=== PATIENT | female | born 2000 | race African-American/Black ===

== ENCOUNTER 2021-01-06 10:47 | Emergency (ER) | payer MEDICAID, SELFPAY ==
--- NOTE | 2021-01-06 11:31 | ED_ITS ---
HPI - General Adult General Chief complaint: Upper Respiratory Symptoms Stated complaint: cough Time Seen by Provider: 01/06/21 11:12 Source: patient Mode of arrival: ambulatory Limitations: no limitations History of Present Illness HPI narrative: 20-year-old female who presents emergency department for evaluation of exposure to COVID-19 and a cough. The patient states she has been sick for approximately 3 days with a dry, nonproductive cough. She states that she has had a decreased appetite and a sore throat which is mild and worse with swallowing. She states she is also feeling lightheaded and dizzy. She states she gets occasional chest pain with coughing but denies any chest pain with breathing. She denies shortness of breath or dyspnea on exertion. She denies myalgias, arthralgias, loss of sense of taste or smell, diarrhea. The patient states that she lives with a 25-year-old woman who tested positive for COVID, this person was symptomatic for approximately 3 days with fever and cough. Related Data Allergies Allergy/AdvReac Type Severity Reaction Status Date / Time No Known Allergies Allergy Verified 01/06/21 11:43 Review of Systems Review of Systems: Yes all other systems are reviewed and are negative [facility] Past Medical History [facility] Narrative: Past medical history: None. Past surgical history: None. Social history: She denies tobacco, alcohol and drug use. She has 2 children a 3-year-old and 2-year-old . Her 2-year-old sign is also patient here in the emergency department for evaluation of subjective fever. Medical History (Updated 01/06/21 @ 11:41 by Ambreen Horan) No known health problems Social History Social History Advance Directives: No Advance Directives Information Provided: No Patient : No Physical Exam Vital Signs: Vital Signs: Last Vital Signs Temp 97.6 F 01/06/21 11:40 Pulse 71 01/06/21 11:40 Resp 16 01/06/21 11:40 BP 96/60 01/06/21 11:40 Pulse Ox 98 01/06/21 11:40 Body Mass Index 21.9 Const: General: cooperative and no acute distress Orientation/consciousness: oriented to person and oriented to place Limitations: no limitations HENMT: Head: Yes normal to inspection, Yes normocephalic and Yes atraumatic Ears: external ears normal General nose exam: Normal external nose present Face and sinus: Yes normal facial exam Mouth: Normal oral and palatal mucosa present Throat: Yes posterior oropharynx normal Eyes: General: appearance normal, both eyes and all related structures Pupils: Equal, round and reactive pupils present Neck: Neck: Yes normal visual inspection, Yes no lymphadenopathy, Yes trachea midline and Yes supple Chest: Chest palpation & inspection: normal inspection of the chest and normal palpation of entire chest wall Resp: Effort & Inspection: normal respiratory effort and able to speak in complete sentences Auscultation: clear to auscultation bilaterally Cardio: Rate: regular rate Rhythm: regular rhythm Heart sounds: S1 normal heart sound present, S2 normal heart sound present and no murmurs GI: Inspection: Yes normal to inspection Palpation (GI): Soft to palpation, nontender and no guarding Auscultation: normal bowel sounds : General: Yes no CVA tenderness Back/Spine/Pelvis: Back: no CVA tenderness Skin: General skin exam: no rashes or lesions noted Neuro: General: oriented to person and oriented to place Cranial nerves: Yes CN's II-XII intact bilaterally and Yes Equal, round and reactive pupils present Cognition (Neuro): normal cognition Motor exam (neuro): 5/5 motor strength present throughout Extrem: General: Yes normal to inspection Psych: Appearance: grossly normal Speech and movement: Normal speech and movement present Affect: normal affect Attitude: cooperative Thought process: Normal thought process present Thought content: Normal thought content present Course Course Course Narrative: 20-year-old female who presents emergency department for evaluation of 3 days dry, nonproductive cough, dizziness, decreased appetite and sore throat. The patient lives with a woman who has been sick for approximately 3 days with fever and cough who tested positive for COVID-19. This patient has not been vaccinated for COVID-19. Her physical examination was unremarkable. The patient will be tested for COVID-19. The patient was discharged home, I told her that even if her COVID-19 test is negative she needs to quarantine for 14 days. I told her that she should stay at home and not expose herself to any other people, I did instructor on signs and symptoms of COVID pneumonia and reasons to return to the emergency department. At this time she does not need any treatment. I will discharge the patient from the emergency department and contact her with her COVID-19 result. 1248: Patient's COVID-19 test was positive. I did inform her of this positive result. Medical Decision Making Lab Data Labs: Lab Results 01/06/21 Range/Units 11:50 COVID-19 ([facility]) Positive A (Negative) COVID-19 Clin Com See Note Discharge Plan Discharge Clinical Impression: Close exposure to 2019 novel coronavirus URI (upper respiratory infection) Qualifiers: URI type: unspecified viral URI Qualified Code(s): J06.9 - Acute upper respiratory infection, unspecified Patient Disposition: Home, Self-Care Instructions: Viral Syndrome (ED) Additional Instructions: Based on your symptoms and history, you were tested forCOVID-19. Your RESULT IS PENDING at this time. Your result should be back to day and I will call you with the results. You will be contacted with either a NEGATIVE OR POSITIVE results. Please wait until we contact you for your results. Based on your evaluation today, it is okay to send you home. Please plan for self quarantine for up to 14 days. Do not expose yourself to others. You may not go to work. Please continue to wear a mask, follow cold instructions and wash your hands frequently. You may take Tylenol 325 mg pills, 2 pills every 4 hours as needed for pain or fever. You may also take ibuprofen(Motrin/Advil) 200 mg pills, 3 pills every 6 hours as needed for pain or fever. Patient seen in the emergency department should be excused from work until negative test results AND until 72 hours without any symptoms have gone away completely OR at least 10 days have passed since symptoms first appeared or since last exposure to COVID-19 positive patient CDC Guidelines for home isolation: - Stay away from others - WEAR A MASK if you are sick AND STAY HOME - Cover your mouth and nose with a tissue when you cough or sneeze. Dispose of tissues in a lined trash can and wash your hands immediately with soap and water for at least 20 seconds. If soap and water are not available, clean hands with alcohol-based hand internet specialist that contains at least 60% alcohol. - Clean your hands often with soap and water for at least 20 seconds - Avoid touching your eyes, nose and mouth with unwashed hands - Do not share dishes, drinking glasses, cups, eating utensils, towels, or bedding with other people in your home. After using these items, wash them thoroughly with soap and water or put in the road conductor. - Clean high-touch surfaces in your isolation area ( sick room and bathroom) every day; let a caregiver clean and disinfect high-touch surfaces in other areas of the home. Clean the area or item with soap and water or another detergent if it is dirty. Then, use a household disinfectant. - Limit contact with pets and animals: If you must care for a pet, wash your hands before and after interacting with them). Interventions: ED Discharge Assessment Last Done: 01/06/21 12:10 Discharge Date/Time: 01/06/21 12:14
[2021-01-06 11:40] VITALS: BP 96/60; PULSE 71; RESP 16; TEMP 36.4; O2SAT 98; BMI 21.9
--- NOTE | 2021-01-06 12:07 | PC.NURSE ---
PT SEEN AND EVALUATED BY DR DUVAL. PT AWAKE, ALERT AND ORIENTED X 3. SKIN WARM AND DRY. RESP UNLABORED. DENIES N/V. NO C/O PAIN. NO SOB. NO COUGH NOTED. PLAN IS FOR SWAB AND TO GO HOME. PT AWARE AND AGREEABLE TO PLAN.
--- NOTE | 2021-01-06 12:10 | PC.NURSE ---
PREVIOUS NOTE WRITTEN BY THIS RN.
[2021-01-06 12:16] LABS: COVID-19 Test Positive (Negative); IDNOW Serial# 08D9AD1C
== END 2021-01-06 12:14 | disposition home or self-care (01) ==
PROVIDERS: Emergency Provider Emergency Medicine Emergency Medical Services
DX: U07.1 COVID-19 (principal)
CPT/HCPCS: 36415; 87635; 99283

== ENCOUNTER 2021-01-18 15:45 | Outpatient (REF) | payer MEDICAID, SELFPAY | END 2021-01-18 15:46 | disposition home or self-care (01) | LOC: HO.LAB 15:45 | PROVIDERS: Visit Provider Internal Medicine | DX: Z20.822 Contact with and (suspected) exposure to COVID-19 (principal) | CPT/HCPCS: C9803; U0003; U0005 ==

== ENCOUNTER 2021-03-29 12:56 | Emergency (ER) | payer MEDICAID, SELFPAY ==
[2021-03-29 15:16] VITALS: BP 116/67; PULSE 76; RESP 16; TEMP 36.6; O2SAT 99; BMI 20.7
[2021-03-29 16:09] LABS: MANUAL DIFF FLAG NO
[2021-03-29 16:10] LABS: Basophils Percent Auto 0.2 % (0-2); Eosinophils Percent Auto 0.1 % (0-4); Hematocrit 33.4 % (37.0-47.0); Imm Gran Abs Auto 0.06 X10*3/uL (0.00-0.03); Imm Gran Pct Auto 0.5 % (0.0-0.4); Lymphocytes Absolute Auto 1.1 X10*3/uL (1.2-4.9); Lymphocytes Percent Auto 8.4 % (20-40); Mean Corpuscular HGB Conc 29.9 g/dl (31.0-35.0); Mean Corpuscular Hemoglobin 22.5 pg (27.0-33.0); Mean Corpuscular Volume 75.1 fL (80.0-98.0); Mean Platelet Volume 9.5 fL (9.4-12.3); Monocytes Absolute Auto 0.4 X10*3/uL (0.1-1.2); Monocytes Percent Auto 2.8 % (2-11); Neutrophils Absolute Auto 11.6 x10*3/uL (2.0-8.3); Platelet Count 505 X10*3/uL (160-400); Red Blood Count 4.45 X10*6/uL (4.20-5.50); Red Cell Distribution Width 15.5 % (11.0-16.0); White Blood Count 13.2 X10*3/uL (4.8-10.8)
--- NOTE | 2021-03-29 16:16 | ED_ITS ---
HPI - General Chief complaint: Vaginal Bleeding Stated complaint: VAGINAL BLEEDING FOR MONTH Time Seen by Provider: 03/29/21 16:11 History of Present Illness HPI Narrative: this is a 20 years old of female presented to the emergency room with 1 month history of vaginal bleeding, she denies any fever any vomiting any abdominal pain. She is a . Complaint: vaginal bleeding Onset (ago): month(s) (1) Pain Consistency: intermittent Severity: mild Quality: Cramping Relieving factors: none Exacerbating factors: none Vaginal bleeding: light Related Data : 2 Para: 2 Allergies Allergy/AdvReac Type Severity Reaction Status Date / Time No Known Allergies Allergy Verified 01/06/21 11:43 Review of Systems Review of Systems: Yes all other systems are reviewed and are negative Constitutional: Constitutional: Reports no additional constitutional complaints Eyes: Eyes: Reports no additional eye complaints ENT: Reports system reviewed and no additional complaints, except as documented Cardiovascular: Cardiovascular: Denies chest pain Gastrointestinal: Gastrointestinal: Denies abdominal pain Integumentary/Breasts: Skin/Breast: Reports system reviewed and no additional complaints, except as docu Neurologic: Reports system reviewed and no additional complaints, except as documented [facility] Past Medical History Medical History (Updated 03/29/21 @ 17:01 by Christopher Sullivan MD) No known health problems : 2 Para: 2 Social History Social History Advance Directives: No Advance Directives Information Provided: No Patient : No Physical Exam Vital Signs: Vital Signs: Last Vital Signs Temp 99.7 F 03/29/21 16:17 Pulse 72 03/29/21 16:17 Resp 14 03/29/21 16:17 BP 109/70 03/29/21 16:17 Pulse Ox 100 03/29/21 16:17 Body Mass Index 20.7 Const: General: cooperative, healthy appearing and comfortable Orientation/consciousness: patient oriented x3 HENMT: Other: Examination the head eyes ears nose and throat is within normal limits General nose exam: Normal external nose present Face and sinus: Yes normal facial exam Mouth: Normal oral and palatal mucosa present Neck: Neck: Yes normal visual inspection, Yes full ROM and Yes no lymphadenopathy Chest: Chest palpation & inspection: normal inspection of the chest Resp: Effort & Inspection: normal respiratory effort Auscultation: clear to auscultation bilaterally Cardio: Jugular venous distension: no JVD Rate: regular rate Rhythm: re gular rhythm GI: Inspection: Yes normal to inspection Palpation (GI): Soft to palpation, nontender and no guarding : Other: pelvic exam was done (svetlana Crouch RN) no vaginal bleeding seen Speculum Exam - Vagina: normal appearance of the vagina Speculum Exam - Cervix: normal appearance of the cervix Bimanual exam- vagina & uterus: normal bimanual exam Skin: General skin exam: no rashes or lesions noted and elasticity normal Neuro: General: patient oriented x3 MDM - OB/Uterine Contractions Lab Data Result diagrams: 03/29/21 16:03 03/29/21 16:03 Labs: Lab Results 03/29/21 03/29/21 Range/Units 16:03 16:03 WBC 13.2 H (4.8-10.8) X10*3/uL RBC 4.45 (4.20-5.50) X10*6/uL Hgb 10.0 L (12.0-16.0) g/dl Hct 33.4 L (37.0-47.0) % MCV 75.1 L (80.0-98.0) fL MCH 22.5 L (27.0-33.0) pg MCHC 29.9 L (31.0-35.0) g/dl RDW 15.5 (11.0-16.0) % Plt Count 505 H (160-400) X10*3/uL MPV 9.5 (9.4-12.3) fL Immature Gran % (Auto) 0.5 H (0.0-0.4) % Neut % (Auto) 88.0 H (45-73) % Lymph % (Auto) 8.4 L (20-40) % Newberry % (Auto) 2.8 (2-11) % Eos % (Auto) 0.1 (0-4) % Baso % (Auto) 0.2 (0-2) % Lymph # (Auto) 1.1 L (1.2-4.9) X10*3/uL Newberry # (Auto) 0.4 (0.1-1.2) X10*3/uL Eos # (Auto) 0.0 (0.0-0.4) X10*3/uL Baso # (Auto) 0.0 (0.0-0.2) X10*3/uL Abs Immat Gran (auto) 0.06 H (0.00-0.03) X10*3/uL Absolute Neuts (auto) 11.6 H (2.0-8.3) x10*3/uL Absolute Nucleated RBC 0.000 (0.0-0.012) X10*3/uL Nucleated RBC % (auto) 0.0 (0.0-0.2) /100WBC Sodium 140 (135-145) mmol/L Potassium 4.6 (3.3-5.1) mmol/L Chloride 105 (96-108) mmol/L Carbon Dioxide 24 (22-29) mmol/L Anion Gap 16 (12-20) BUN 16 (9-16) mg/dL Creatinine 0.69 (0.5-1.4) mg/dL Estim Creat Clear Calc 110.4 Estimated GFR > 60 Random Glucose 92 (60-115) mg/dL Calcium 9.8 (8.4-10.2) mg/dL Total Bilirubin 0.3 (0.0-1.0) mg/dL AST 15 (5-31) U/L ALT 17 (0-31) U/L Alkaline Phosphatase 85 (39-117) U/L Total Protein 7.9 (6.5-8.0) g/dL Albumin 4.3 (3.5-5.0) g/dL Beta HCG, Quant < 2 mIU/mL Discharge Plan Discharge Clinical Impression: Vaginal bleeding Patient Disposition: Home, Self-Care Instructions: Dysfunctional Uterine Bleeding (ED) Referrals: Vijay Ramirez MD [Physician] - 2 days
[2021-03-29 16:17] VITALS: BP 109/70; PULSE 72; RESP 14; TEMP 37.6; O2SAT 100
[2021-03-29 16:34] LABS: Alanine Aminotransferase 17 U/L (0-31); Albumin Level 4.3 g/dL (3.5-5.0); Alkaline Phosphatase 85 U/L (39-117); Anion Gap 16 (12-20); Aspartate Amino Transferase 15 U/L (5-31); Bilirubin Total 0.3 mg/dL (0.0-1.0); Blood Urea Nitrogen 16 mg/dL (9-16); Calcium 9.8 mg/dL (8.4-10.2); Carbon Dioxide 24 mmol/L (22-29); Chloride 105 mmol/L (96-108); Creatinine Clr Calc Pharmacy 110.4; Estimated Glomerular Filt Rate > 60; Glucose Random 92 mg/dL (60-115); Potassium 4.6 mmol/L (3.3-5.1); Sodium 140 mmol/L (135-145); Total Protein 7.9 g/dL (6.5-8.0)
[2021-03-29 16:40] LABS: HCG Quantitative < 2 mIU/mL
--- NOTE | 2021-03-29 17:00 | PC.NURSE ---
PELVIC EXAM PERFORMED BY DR ARCHIBALD. HE REPORTS THAT THE OS IS CLOSED AND NO SIGNIFICANT BLOOD IS NOTED IN THE VAGINAL CANAL.
[2021-03-29 17:16] LABS: Appearance Urine HAZY; Color Urine YELLOW; Glucose Urine UA NEG (NEG); Leukocyte Esterase Urine NEG (NEG); Nitrite Urine NEG (NEG); Specific Gravity - Urine >= 1.030 (1.005-1.025); UACC Culture Trigger NO; UPreg QC Valid YES; Urine Blood 2+ (NEG); Urine Ketones 15 MG/DL (NEG); Urine Pregnancy NEGATIVE (NEGATIVE); Urine Protein 1+ MG/DL (NEG-TRACE)
[2021-03-29 17:33] LABS: Mucus Urine 3+ /LPF; Squamous Epithelial Cell Urine 1+ /LPF
[2021-03-29 17:36] LABS: Bacteria Urine TRACE /LPF
== END 2021-03-29 17:20 | disposition home or self-care (01) ==
PROVIDERS: Emergency Provider Emergency Medicine
DX: N93.9 Abnormal uterine and vaginal bleeding, unspecified (principal)
CPT/HCPCS: 36415; 80053; 81001; 81025; 84702; 85025; 99283; 99284

== ENCOUNTER 2022-02-13 14:03 | Emergency (ER) | payer MEDICAID, SELFPAY ==
[2022-02-13 14:13] VITALS: BP 104/78; PULSE 81; RESP 16; TEMP 37.2; O2SAT 100; BMI 20.3
--- NOTE | 2022-02-13 16:37 | ED_ITS ---
HPI - Wound/Laceration General Chief Complaint: Wound/Laceration Stated Complaint: R hand lac/inj Time Seen by Provider: 02/13/22 15:59 Source: patient Mode of arrival: ambulatory Limitations: no limitations History of Present Illness HPI narrative: 21-year-old female presents for laceration to the right dorsal aspect of the hand between the 2nd and 3rd fingers 1 cm below the webspace. She was cleaning, dropped the glass and a shard of broken glass landed on her hand. She does have full range of motion to the digits, and was able to control the bleeding at home. Onset (ago): hour(s) (Within the hour of arrival) Extremity Location: right: hand Place: home Patient tetanus UTD: No Context: accidental Associated symptoms: pain Treatments prior to arrival: bandage Related Data Allergies Allergy/AdvReac Type Severity Reaction Status Date / Time No Known Allergies Allergy Verified 01/06/21 11:43 Review of Systems Review of Systems: Constitutional: No Fever, No Chills ENT/Mouth: No Ear Pain, No Hoarseness, No sore throat Eyes: No Eye Pain, No Swelling, No Redness, No Foreign Body Cardiovascular: No Chest Pain, No SOB Respiratory: No Cough, No Dyspnea Gastrointestinal: No Nausea, No Vomiting, No Diarrhea, No abdominal Pain Genitourinary: No Dysuria, No Hematuria Musculoskeletal: positive right hand pain, No Myalgias, No Joint Swelling Skin: Right hand laceration, No Skin lacerations, No rash Neuro: No Weakness, No Numbness, No Paresthesias, No Loss of Consciousness, No Dizziness, No Headache Psych: No Anxiety/Panic, No Depression Heme/Lymph: no easy bruising, no Lymphadenopathy Endocrine: No Polyuria, No Polydipsia Yes all other systems are reviewed and are negative [facility] Past Medical History Attestation statement: The following information was validated with the patient. Source: old records reviewed Medical History No known health problems Social History Social History Advance Directives: No Advance Directives Information Provided: Yes Physical Exam Vital Signs: Vital Signs: Last Vital Signs Temp 98.9 F 02/13/22 14:13 Pulse 81 10/09/22 14:13 Resp 16 02/13/22 14:13 BP 104/78 02/13/22 14:13 Pulse Ox 100 02/13/22 14:13 O2 Del Method 02/13/22 14:13 BMI result Body Mass Index 20.3 Appearance: Alert. Oriented X3. No acute distress. Eyes: Pupils equal, round and reactive to light. ENT: Pharynx normal. Neck: Normal inspection. Neck supple. CVS: Normal heart rate and rhythm. Pulses normal. Respiratory: No respiratory distress. Breath sounds normal. Abdomen: Soft and nontender. Skin: 1 cm irregular puncture laceration to the dorsal aspect of the right hand just below the 1st MCP. Skin warm and dry. Normal skin color. Normal skin turgor. Extremities: No lower extremity edema. Full flexion, extension, brisk capillary refill in equal pulses to the upper extremities. No indication of tendon injury. Neuro: No motor deficit. No sensory deficit. Cranial nerves 2-12 intact. Course Course Course Narrative: 21-year-old female presents for evaluation for laceration to the dorsal aspect of the right hand just below the 1st MCP between 1st and 2nd tendon extensor digitorum. Patient has full flexion and extension of all digits of the right hand, no tendon laxity or movement disruptions. Unknown when last Tdap vaccine was updated. Plan of care is to suture. Prepped and draped in sterile fashion. Irrigated with copious amounts of sterile saline. Please refer to procedure note for full details. Patient tolerated procedure well. 17:13 x-rays negative for foreign body, does show some free air consistent with laceration and irrigation. Patient agrees to return in 7-10 days to have sutures removed. Understand signs symptoms indicating infection and when to seek medical attention. Patient verbalized understanding of and agrees plan care discharge home. MDM - Wound/Laceration Differential Diagnosis Differential diagnosis: Likely laceration Medical Records Attestation: I reviewed the patient's medical records. Imaging Data Hand laceration: Attestation: I personally reviewed and interpreted this imaging study as follows: Radiologist's impression: EXAMINATION: XR HAND, RIGHT CLINICAL INFORMATION: Laceration. Question tendon laceration or foreign body? COMPARISON: None? TECHNIQUE: PA, lateral, and oblique views of the right hand. FINDINGS: No acute fracture or dislocation. There is hyperextension at the fifth MCP joint on the lateral view. Linear soft tissue gas along the medial aspect of the index finger proximal phalanx and second webspace. No radiodense foreign body. Metallic ring projects about the third proximal phalanx. Joint spaces are maintained. XR/XR hand RT min 3V IMPRESSION: ? 1. No acute osseous injury. No radiodense foreign body. 2. Soft tissue gas about the medial aspect of the base of index finger and second webspace consistent with laceration. Procedures Laceration Laceration 1: Site: hand Side (If applicable): right Size (cm): 1 Description: stellate and irregular Depth: simple, single layer Local Anesthetic: lidocaine 2% Amount of anesthesia used (mL): 2 Pre-repair: wound explored, irrigated extensively and deep structures intact Skin layer closed with: nylon Size (cm): 5-0 Number of sutures: 5 Technique: simple, interrupted Discharge Plan Discharge Clinical Impression: Hand laceration Patient Disposition: Home, Self-Care Instructions: Care For Your Stitches (ED), Laceration (ED) Additional Instructions: You were evaluated for hand laceration. We placed 5 sutures. Please return in 7-10 days to have sutures removed. If you notice any signs or symptoms indicating infection please return sooner. We updated your Tdap vaccine today. Take Tylenol 650 mg every 6 hours and alternate with Motrin 600 mg every 6 hours as needed for pain management. Write down what time you take these medications to prevent accidental overdose. Rest and elevate the hand to help reduce pain and swelling. Thank you for choosing this emergency department for evaluation. Please follow-up with primary care physician as needed. Return to the emergency department for any new, concerning, or worsening symptoms. Stand Alone Forms: Work/School Release
== END 2022-02-13 17:37 | disposition home or self-care (01) ==
PROVIDERS: Emergency Provider Emergency Medicine Emergency Medical Services
DX: S61.411A Laceration without foreign body of right hand, initial encounter (principal); W25.XXXA Contact with sharp glass, initial encounter; Y93.9 Activity, unspecified; Y92.9 Unspecified place or not applicable; Y99.9 Unspecified external cause status
CPT/HCPCS: 12001; 73130; 99283

== ENCOUNTER 2022-06-09 10:57 | Outpatient (REF) | payer MEDICAID, SELFPAY ==
--- NOTE | ~2022-06-09 | US_ITS ---
EXAMINATION: US PELVIS CLINICAL INFORMATION: Pelvic pain; the last menstrual period was on 05/08/2022. COMPARISON: None TECHNIQUE: Ultrasound of the pelvis is performed using both transabdominal and transvaginal transducers along with Doppler. Transvaginal imaging is performed due to inadequate visualization transabdominally. FINDINGS: Uterus: The uterus is anteverted and retroflexed. The uterus measures 9.8 x 4.8 x 4.8 cm. Nabothian cysts are seen within the cervix. The double wall endometrial thickness is 1.4 mm. There is a small amount nonspecific endometrial free fluid. The uterus is smooth in contour and has normal myometrial echogenicity. No visible fibroid. Adnexa: Both ovaries are visualized. There is normal color flow to the adnexa. There is no ovarian torsion. There is a small amount of nonspecific free fluid within the cul-de-sac. Right ovary measures 6.0 x 3.8 x 3.7 cm, volume 43.9 mL. The right ovary contains a 3.8 x 2.6 x 3.0 cm complex cyst with internal reticulated contents. This shows associated peripheral color Doppler flow but no central color Doppler flow. Left ovary measures 3.9 x 1.7 x 2.5 cm, volume 8.7 mL. US/US pelvic and transvaginal IMPRESSION: 1. A 3.8 cm in maximal diameter complex right ovarian cyst is seen, with ultrasound features characteristic for a hemorrhagic cyst. Further differential considerations include endometrioma and dermoid. Recommend repeat pelvic ultrasound examination 6/12 weeks to ensure regression/resolution and exclude the less likely possibility of neoplasm. 2. There is a small amount of nonspecific free fluid within the endocervical canal. 3. Nabothian cysts are seen within the cervix.
== END 2022-06-09 10:58 | disposition home or self-care (01) ==
LOC: HO.US 10:57
PROVIDERS: PCP Family Medicine; Visit Provider Family Medicine
DX: R10.2 Pelvic and perineal pain (principal)
CPT/HCPCS: 76830; 76856

== ENCOUNTER 2022-12-13 20:05 | Outpatient (REF) | payer MEDICAID, SELFPAY ==
[2022-12-14 12:49] LABS: BV Int Neg Control Negative (Negative); BV Int Pos Control Positive (Positive)
== END 2022-12-13 20:06 | disposition home or self-care (01) ==
LOC: HO.HHCLNP 20:05
PROVIDERS: Visit Provider Internal Medicine
DX: R10.2 Pelvic and perineal pain (principal)
CPT/HCPCS: 87480; 87510; 87660

== ENCOUNTER 2023-02-09 18:55 | Outpatient (REF) | payer MEDICAID, SELFPAY | END 2023-02-09 18:56 | disposition home or self-care (01) | LOC: HO.HHCLNP 18:55 | PROVIDERS: Visit Provider Student in an Organized Health Care Education/Training Program | DX: N89.8 Other specified noninflammatory disorders of vagina (principal) | CPT/HCPCS: 0353U; 87480; 87510; 87660 ==

== ENCOUNTER 2023-02-10 13:18 | Outpatient (REF) | payer MEDICAID, SELFPAY | END 2023-02-10 13:19 | disposition home or self-care (01) | LOC: HO.HHCL 13:18 | PROVIDERS: Visit Provider Student in an Organized Health Care Education/Training Program | DX: D50.9 Iron deficiency anemia, unspecified (principal) | CPT/HCPCS: 36415; 82728; 83540; 85025 ==

== ENCOUNTER 2023-03-16 14:40 | Outpatient (REF) | payer MEDICAID, SELFPAY ==
[2023-03-16 16:28] LABS: Estimated Average Glucose 97 mg/dL
[2023-03-17 08:10] LABS: HIV AB/AG Nonreactive (Nonreactive); HIV Num 1 0.06 S/CO (0.00-0.99)
[2023-03-17 08:23] LABS: HCG Tumor Marker <5 mIU/mL
[2023-03-17 13:13] LABS: BV Int Neg Control Negative (Negative); BV Int Pos Control Positive (Positive)
== END 2023-03-16 14:41 | disposition home or self-care (01) ==
LOC: HO.HHCL 14:40
PROVIDERS: Visit Provider Advanced Practice Midwife
DX: Z11.3 Encounter for screening for infections with a predominantly sexual mode of transmission (principal); Z13.1 Encounter for screening for diabetes mellitus; N93.9 Abnormal uterine and vaginal bleeding, unspecified; N89.8 Other specified noninflammatory disorders of vagina
CPT/HCPCS: 36415; 83036; 84702; 87389; 87480; 87510; 87660

== ENCOUNTER 2023-11-10 07:19 | Emergency (ER) | payer MEDICAID, SELFPAY ==
--- NOTE | ~2023-11-10 | XR_ITS ---
EXAMINATION: XR FOOT, RIGHT CLINICAL INFORMATION: Right foot pain. COMPARISON: None available. TECHNIQUE: AP, lateral, and oblique views of the right foot. FINDINGS: Alignment is anatomic. Joint spaces are maintained. No displaced fracture or dislocation. No bony erosions. No focal radiographic soft tissue swelling. XR/XR foot RT 2V IMPRESSION: No acute abnormality.
[2023-11-10 07:27] VITALS: BP 126/69; PULSE 68; RESP 16; TEMP 36.9; O2SAT 98; BMI 20.5
--- NOTE | 2023-11-10 08:29 | ED_ITS ---
HPI - Extremity Injury (Lower) General Chief Complaint: Extremity Injury, Lower Stated Complaint: R foot pain Time Seen by Provider: 11/10/23 08:26 Source: patient Mode of arrival: ambulatory Limitations: no limitations History of Present Illness ED Provider: NORMAN NICOLE PA-C HPI Narrative: 22-year-old female with no significant past medical history presents to the emergency department today for evaluation of right great toe pain x3 days. Admits to pain around the great toe joint. Pain is exacerbated with bearing weight on the foot. Has been taking Tylenol and ibuprofen at home for pain/discomfort with minimal relief. Last dose around 11:00 a.m. last night. Denies injury or trauma. Denies history of gout or lyme disease. Denies recent tick or insect bites. Denies fever, chills, rashes. Related Data Previous Rx's ?Medication ?Instructions ?Recorded naproxen 500 mg tablet 500 mg PO Q8-12H PRN pain (scale 11/10/23 score 1-3) #14 tabs prednisone 20 mg tablet 40 mg (2 x 20 mg) PO DAILY 5 days 11/10/23 #10 tabs Allergies Allergy/AdvReac Type Severity Reaction Status Date / Time No Known Allergies Allergy Verified 11/10/23 07:28 Review of Systems 2 Review of Systems: Constitutional: No fever, chills, fatigue, night sweats, weight changes ENT/Mouth: No ear pain, hearing loss, nasal congestion, sinus pain, rhinorrhea, sore throat Eyes: No eye pain, swelling, redness, vision changes, discharge Cardio: No chest pain, palpitations, PAN, orthopnea, peripheral edema Pulm: No SOB, cough, sputum, wheezing, dyspnea, hemoptysis GI: No nausea, vomiting, hematemesis, abdominal pain, diarrhea, constipation, hematochezia, melena : No irregular bleeding, dysuria, frequency, urgency, hesitancy, hematuria, flank pain, urinary flow changes, urinary incontinence or retention MSK: No back pain, neck pain, joint pain, myalgias, +right great toe pain Skin: No lesions, rashes Neuro: No weakness, numbness, paresthesias, LOC, dizziness, headache Psych: No anxiety/panic, depression, SI/HI, AH/VH All other systems reviewed and are negative. [facility] Past Medical History Attestation statement: The following information was validated with the patient. Source: old records reviewed and nursing notes reviewed Medical History No known health problems Social History Social History Advance Directives: No Advance Directives Information Provided: No Physical Exam 2 Vital Signs: Vital Signs: Last Vital Signs Temp 98.1 F 11/10/23 09:19 Pulse 74 11/10/23 09:19 Resp 18 11/10/23 09:19 BP 122/76 11/10/23 09:19 Pulse Ox 99 11/10/23 09:19 O2 Del Method Room Air 11/10/23 09:19 BMI result Body Mass Index 20.5 Vital signs stable, afebrile Const: General: cooperative, healthy appearing, comfortable and no acute distress Orientation/consciousness: patient oriented x3 Limitations: no limitations HEENT: Head: Yes normal to inspection, Yes No palpable skull fracture present, Yes normocephalic and Yes atraumatic Eyes: General: appearance normal, both eyes and all related structures P upils: Equal, round and reactive pupils present EOM: EOMs intact bilaterally Neck: Neck: Yes normal visual inspection and Yes full ROM Resp: Effort & Inspection: normal respiratory effort and able to speak in complete sentences Auscultation: clear to auscultation bilaterally Cardio: Rate: regular rate Rhythm: regular rhythm Skin: General skin exam: no rashes or lesions noted Neuro: General: patient oriented x3 Cranial nerves: Yes Equal, round and reactive pupils present Extrem: Other: + right great toe with noted swelling at MCP. no erythema. No warmth, fluctuance, crepitus. Exquisitely tender to palpation. ROM intact to right MCP with pain elicited on movement. No streaking. 2+ PT/DP pulse intact. Course Course Course Narrative: 909-- XR right foot without acute abnormality. No visible fracture. Will obtain basic labs/ uric acid to r/o infection and gout. Toradol ordered for pain control. Plan for re-evaluation. 1005-- CBC without leukocytosis or left shift. No concern for acute infection. Chronic microcytic anemia when compared to priors with stable H&H. Chemistry without acute electrolyte abnormality requiring intervention. Uric acid WNL. Beta hCG undetectable. No . > discussed all workup results with patient. Will send prednisone and naproxen to pharmacy for symptomatic treatment. Advised to follow up with PCP. She was treated with Toradol for pain control with improvement in pain. Patient has remained stable throughout ED visit today. Discussed worrisome signs and symptoms and when to return to the ED. All questions answered at this time. Patient is agreeable with disposition and stable for discharge. Medications Administered Discontinued Medications Generic Name Dose Route Start Last Admin Trade Name Felicia PRN Reason Stop Dose Admin Ketorolac Tromethamine 30 mg 11/10/23 08:39 11/10/23 08:54 Ketorolac Tromethamine 30 Mg/Ml Vial IM 11/10/23 08:40 30 mg ONCE ONE Administration Medical Decision Making Medical Decision Making [facility] [place] Narrative: 22-year-old female with no significant past medical history presents to the emergency department today for evaluation of right great toe pain x3 days. VSS. Afebrile. She is nontoxic appearing and in NAD. On exam, right great toe with noted swelling at MCP. no erythema. No warmth, fluctuance, crepitus. Exquisitely tender to palpation. ROM intact to right MCP with pain elicited on movement. No streaking. 2+ PT/DP pulse intact. Ambulating with steady gait. Differential diagnosis includes contusion, msk sprain/ strain, gout, pseudogout, fracture. Lower suspicion for lyme arthritis, septic joint. Unlikely nv compromise, threat to limb, compartment syndrome. xray of right foot obtained prior to my assumption of care. Will add on basic labs, uric acid, and preg test. Toradol ordered for pain control. Plan for re- evaluation. Differential Diagnosis Differential Diagnoses: The differential diagnosis associated with the presentation includes As above Admission/Observation Not indicated Lab Data [facility] Lab Attestation statement: I reviewed the patient's lab results. As above 11/10/23 09:01 11/10/23 09:01 Labs: Lab Results 11/10/23 Range/Units 09:01 WBC 9.8 (4.8-10.8) X10*3/uL RBC 4.72 (4.20-5.50) X10*6/uL Hgb 11.5 L (12.0-16.0) g/dl Hct 36.8 L (37.0-47.0) % MCV 78.0 L (80.0-98.0) fL MCH 24.4 L (27.0-33.0) pg MCHC 31.3 (31.0-35.0) g/dl RDW 14.8 (11.0-16.0) % Plt Count 290 (160-400) X10*3/uL MPV 10.9 (9.4-12.3) fL Immature Gran % (Auto) 0.3 (0.0-0.4) % Neut % (Auto) 69.1 (45-73) % Lymph % (Auto) 22.3 (20-40) % [place] % (Auto) 6.9 (2-11) % Eos % (Auto) 1.0 (0-4) % Baso % (Auto) 0.4 (0-2) % Lymph # (Auto) 2.2 (1.2-4.9) X10*3/uL [place] # (Auto) 0.7 (0.1-1.2) X10*3/uL Eos # (Auto) 0.1 (0.0-0.4) X10*3/uL Baso # (Auto) 0.0 (0.0-0.2) X10*3/uL Abs Immat Gran (auto) 0.03 (0.00-0.03) X10*3/uL Absolute Neuts (auto) 6.8 (2.0-8.3) x10*3/uL Absolute Nucleated RBC 0.000 (0.0-0.012) X10*3/uL Nucleated RBC % (auto) 0.0 (0.0-0.2) /100WBC Sodium 138 (135-145) mmol/L Potassium 3.9 (3.3-5.1) mmol/L Chloride 107 (96-108) mmol/L Carbon Dioxide 23 (22-29) mmol/L Anion Gap 12 (12-20) BUN 19 H (9-16) mg/dL Creatinine 0.70 (0.5-1.4) mg/dL Estim Creat Clear Calc 102.5 Estimated GFR > 60 Random Glucose 91 (60-115) mg/dL Uric Acid 4.1 (2.4-5.7) mg/dL Calcium 9.5 (8.4-10.2) mg/dL Beta HCG, Quant < 2 mIU/mL Independent Interpretation I performed an independent interpretation of an: Plain X-Ray Interpretation: X-ray right foot without fracture, agree with radiologist's interpretation. Radiology Impression Radiologist Impression: EXAMINATION: XR FOOT, RIGHT CLINICAL INFORMATION: Right foot pain. COMPARISON: None available. TECHNIQUE: AP, lateral, and oblique views of the right foot. FINDINGS: Alignment is anatomic. Joint spaces are maintained. No displaced fracture or dislocation. No bony erosions. No focal radiographic soft tissue swelling. XR/XR foot RT 2V IMPRESSION: No acute abnormality. External Record Review External record reviewed: Inpatient record Prescription Management I considered prescription management with: Pain Medication (Naproxen) and Other (Prednisone) Social Determinants Patient?s care significantly limited by Social Determinants of Health including: Other Social Determinant of Health Critical Care Time Critical Care Time Critical Care Time: No Discharge Plan Discharge Clinical Impression: Pain of right great toe Patient Disposition: Home, Self-Care Instructions: Naproxen (By mouth), Prednisone (By mouth), Arthralgia (ED) Additional Instructions: Your blood work up today is reassuring. Your xrays do not demonstrate fracture. Prednisone is a steroid that has been sent to your pharmacy. Take this for the next 5 days to help with inflammation. If you are diabetic, please monitor your sugars closely at home as this can elevate them. Naproxen is an anti-inflammatory pain medication that has been sent to your pharmacy for you to take for pain/discomfort. Do not take this with other NSAIDs such as ibuprofen or Aleve as this can cause increased risk of GI bleeding. Additionally utilize rice therapy - rest, ice, compress, elevate. Please follow-up with your primary care provider. Return with new or worsening symptoms. In the case of an emergency call 911. Prescriptions: New prednisone 20 mg tablet 40 mg PO DAILY 5 Days Qty: 10 0RF naproxen 500 mg tablet 500 mg PO Q8-12H PRN (Reason: pain (scale score 1-3)) Qty: 14 0RF Stand Alone Forms: Work/School Release Print Language: Urdu
[2023-11-10] MEDS: Ketorolac Tromethamine 30 MG/ML VIAL IM (08:54)
--- NOTE | 2023-11-10 08:56 | PC.NURSE ---
pt a&ox3, c/o 12/15 rt foot pain, pt medicated per order, call brown within reach, will continue to monitor
[2023-11-10 09:05] LABS: MANUAL DIFF FLAG NO
[2023-11-10 09:19] VITALS: BP 122/76; PULSE 74; RESP 18; TEMP 36.7; O2SAT 99
[2023-11-10 09:31] LABS: Basophils Percent Auto 0.4 % (0-2); Eosinophils Absolute Auto 0.1 X10*3/uL (0.0-0.4); Hematocrit 36.8 % (37.0-47.0); Hemoglobin 11.5 g/dl (12.0-16.0); Imm Gran Abs Auto 0.03 X10*3/uL (0.00-0.03); Imm Gran Pct Auto 0.3 % (0.0-0.4); Lymphocytes Absolute Auto 2.2 X10*3/uL (1.2-4.9); Lymphocytes Percent Auto 22.3 % (20-40); Mean Corpuscular HGB Conc 31.3 g/dl (31.0-35.0); Mean Corpuscular Hemoglobin 24.4 pg (27.0-33.0); Mean Platelet Volume 10.9 fL (9.4-12.3); Monocytes Absolute Auto 0.7 X10*3/uL (0.1-1.2); Monocytes Percent Auto 6.9 % (2-11); Neutrophils Absolute Auto 6.8 x10*3/uL (2.0-8.3); Neutrophils Percent Auto 69.1 % (45-73); Platelet Count 290 X10*3/uL (160-400); Red Blood Count 4.72 X10*6/uL (4.20-5.50); Red Cell Distribution Width 14.8 % (11.0-16.0); White Blood Count 9.8 X10*3/uL (4.8-10.8)
[2023-11-10 09:47] LABS: Anion Gap 12 (12-20); Blood Urea Nitrogen 19 mg/dL (9-16); Calcium 9.5 mg/dL (8.4-10.2); Carbon Dioxide 23 mmol/L (22-29); Chloride 107 mmol/L (96-108); Creatinine Clr Calc Pharmacy 102.5; Estimated Glomerular Filt Rate > 60; Glucose Random 91 mg/dL (60-115); HCG Quantitative < 2 mIU/mL; Potassium 3.9 mmol/L (3.3-5.1); Sodium 138 mmol/L (135-145); Uric Acid 4.1 mg/dL (2.4-5.7)
[2023-11-10 10:21] VITALS: BP 122/76; PULSE 74; RESP 18; TEMP 36.7; O2SAT 99
== END 2023-11-10 10:22 | disposition home or self-care (01) ==
PROVIDERS: Physician Assistant Medical; Emergency Provider Emergency Medicine Emergency Medical Services
DX: M79.674 Pain in right toe(s) (principal)
CPT/HCPCS: 36415; 73620; 80048; 84550; 84702; 85025; 96372; 99283; 99284; J1885

== ENCOUNTER 2023-12-21 10:50 | Outpatient (REF) | payer MEDICAID, SELFPAY ==
[2023-12-21 13:14] LABS: Hematocrit 38.7 % (37.0-47.0); Hemoglobin 11.9 g/dl (12.0-16.0); Mean Corpuscular HGB Conc 30.7 g/dl (31.0-35.0); Mean Corpuscular Hemoglobin 24.2 pg (27.0-33.0); Mean Corpuscular Volume 78.8 fL (80.0-98.0); Mean Platelet Volume 11.8 fL (9.4-12.3); Platelet Count 317 X10*3/uL (160-400); Red Blood Count 4.91 X10*6/uL (4.20-5.50); Red Cell Distribution Width 14.8 % (11.0-16.0); White Blood Count 11.1 X10*3/uL (4.8-10.8)
[2023-12-21 13:44] LABS: Alanine Aminotransferase 15 U/L (0-31); Albumin Level 4.3 g/dL (3.5-5.0); Alkaline Phosphatase 74 U/L (39-117); Anion Gap 11 (12-20); Aspartate Amino Transferase 20 U/L (5-31); Bilirubin Total 0.3 mg/dL (0.0-1.0); Blood Urea Nitrogen 12 mg/dL (9-16); Calcium 9.5 mg/dL (8.4-10.2); Carbon Dioxide 23 mmol/L (22-29); Chloride 107 mmol/L (96-108); Estimated Glomerular Filt Rate > 60; Glucose Random 79 mg/dL (60-115); Iron 22 mcg/dL (30-160); Percent Iron Saturation 6 % (15-50); Potassium 3.7 mmol/L (3.3-5.1); Sodium 137 mmol/L (135-145); Total Iron Binding Capacity 365 mcg/dL (228-428); Total Protein 7.6 g/dL (6.5-8.0); Unsaturated Iron Binding 343 ug/dL
[2023-12-21 14:02] LABS: Ferritin 6 ng/mL (10-122); TSH reflex Free T4 0.78 uIU/mL (0.32-4.0)
== END 2023-12-21 10:51 | disposition home or self-care (01) ==
LOC: HO.HHCL 10:50
PROVIDERS: Visit Provider Student in an Organized Health Care Education/Training Program
DX: D64.9 Anemia, unspecified (principal)
CPT/HCPCS: 36415; 80053; 82728; 83540; 84443; 85027

== ENCOUNTER 2023-12-29 12:57 | Outpatient (REF) | payer MEDICAID, SELFPAY ==
--- NOTE | ~2023-12-29 | US_ITS ---
EXAMINATION: US PELVIS CLINICAL INFORMATION: Right ovarian cysts, last menstrual period 12/21/2023. COMPARISON: 06/09/2022. TECHNIQUE: Ultrasound of the pelvis is performed using both transabdominal and transvaginal transducers along with Doppler. Transvaginal imaging is performed due to inadequate visualization transabdominally. FINDINGS: The uterus is anteverted and measures 8.5 x 5.0 x 4.4 cm. Endometrial thickness is 7 mm. There is no significant free fluid. Right ovary measures 3.8 x 2.5 x 2.9 cm, volume 14.0 mL. Small amount of free fluid adjacent to the right ovary. 1.0 x 1.1 x 0.7 cm complex cyst with septations within the right ovary. Left ovary measures 3.4 x 2.2 x 3.8 cm, volume 14.7 mL. Left ovary is unremarkable. US/US pelvic and transvaginal IMPRESSION: 1. Endometrial thickness is 7 mm. 2. Right ovarian 1.1 cm complex cyst with septations. Small amount of free fluid adjacent to the right ovary. Recommend followup ultrasound in 6-8 weeks. Electronically signed by: America Horne MD 01/10/2024 10:23 AM EDT
== END 2023-12-29 12:58 | disposition home or self-care (01) ==
LOC: HO.HMGCX 12:57
PROVIDERS: PCP Student in an Organized Health Care Education/Training Program; Visit Provider Student in an Organized Health Care Education/Training Program
DX: N83.201 Unspecified ovarian cyst, right side (principal)
CPT/HCPCS: 76830; 76856

== ENCOUNTER 2024-01-24 18:08 | Outpatient (REF) | payer MEDICAID, SELFPAY ==
[2024-01-25 04:04] LABS: CT PCR NOT DETECTED (Not Detect.); NG PCR NOT DETECTED (Not Detect.)
[2024-01-25 10:47] LABS: Bacterial Vaginosis PCR NEGATIVE (Negative); Candida Group PCR NOT DETECTED (Not Detect); Candida glab krusei PCR NOT DETECTED (Not Detect); Trichomonas vaginalis PCR NOT DETECTED (Not Detect)
== END 2024-01-24 18:09 | disposition home or self-care (01) ==
LOC: HO.HHCLNP 18:08
PROVIDERS: Visit Provider Emergency Medicine
DX: N89.8 Other specified noninflammatory disorders of vagina (principal)
CPT/HCPCS: 0352U; 87491; 87591

== ENCOUNTER 2024-02-06 21:49 | Emergency (ER) | payer MEDICAID, SELFPAY ==
[2024-02-06 21:58] VITALS: BP 96/58; PULSE 83; RESP 18; TEMP 36.6; O2SAT 98; BMI 20.4
[2024-02-06 22:54] LABS: Influenza A PCR NEGATIVE (Negative); Influenza B PCR NEGATIVE (Negative); Resp Syncy Virus RNA Qual PCR NEGATIVE (Negative); SARS COV2 PCR INHOUSE NEGATIVE (Negative)
--- NOTE | 2024-02-06 23:16 | ED_ITS ---
HPI - URI/Sore Throat General Chief Complaint: Upper Respiratory Symptoms Stated Complaint: cold symptoms Time Seen by Provider: 02/06/24 22:13 Source: patient Mode of arrival: ambulatory Limitations: no limitations History of Present Illness ED Provider: Dr. Carol Mcdaniel HPI Narrative: Patient comes to the emergency room complaining of runny nose, cough. Patient states it started yesterday, has been taking Tylenol. Patient denies chest pain or shortness of breath. Patient's son has the same symptoms. Related Data Previous Rx's ?Medication ?Instructions ?Recorded naproxen 500 mg tablet 500 mg PO Q8-12H PRN pain (scale 11/10/23 score 1-3) #14 tabs prednisone 20 mg tablet 40 mg (2 x 20 mg) PO DAILY 5 days 11/10/23 #10 tabs dextromethorphan-guaifenesin 10 2 tab-cap (2 x 10-200 mg) PO Q6H 02/06/24 mg-200 mg capsule (Alicia-Hometown PRN cough #20 caps Plus Mucus-Congestion) Allergies Allergy/AdvReac Type Severity Reaction Status Date / Time No Known Allergies Allergy Verified 02/06/24 22:03 Review of Systems Review of Systems: Constitutional : No Weight loss, No Fever, No Chills, No Night Sweats, No Fatigue, No Malaise ENT/Mouth : No Hearing loss, No Ear Pain, complaining of nasal congestion, rhinorrhea Eyes: No Eye Pain, No Swelling, No Redness, No Foreign Body, No Discharge, No Vision Changes Cardiovascular : No Chest Pain, No SOB, No Dyspnea on Exertion, No Orthopnea, No Edema, No Palpitations Respiratory : Complaining of dry Cough, No Sputum, No Wheezing, No Smoke Exposure, No Dyspnea Gastrointestinal : No Nausea, No Vomiting, No Diarrhea, No Constipation, No a bdominal Pain, No Hematochezia, No Melena Genitourinary : no irregular bleeding, No Dysuria, No Urinary Frequency, No Hematuria, No Urinary Incontinence, No Urgency, No Flank Pain, No Urinary Flow Changes, No Hesitancy Musculoskeletal : No joint pain, No Myalgias, No Joint Swelling Skin : No Skin Lesions, No rash Neuro : No Weakness, No Numbness, No Paresthesias, No Loss of Consciousness, No Dizziness, No Headache Psych : No Anxiety/Panic, No Depression, No SI/HI/AH/VH, No Social Issues, Heme/Lymph: No Bruising, No Bleeding,No Lymphadenopathy Endocrine : No Polyuria, No Polydipsia, No Temperature Intolerance [facility] Past Medical History Medical History No known health problems Social History Social History Advance Directives: No Advance Directives Information Provided: No Physical Exam Vital Signs: Vital Signs: Last Vital Signs Temp 97.9 F 02/06/24 21:58 Pulse 83 02/06/24 21:58 Resp 18 02/06/24 21:58 BP 96/58 L 02/06/24 21:58 Pulse Ox 98 02/06/24 21:58 O2 Del Method Room Air 02/06/24 21:58 BMI result Body Mass Index 20.4 Const: Other: Constitutional : No Weight loss, No Fever, No Chills, No Night Sweats, No Fatigue, No Malaise ENT/Mouth : No Hearing loss, No Ear Pain, No Nasal Congestion, No Sinus Pain, No Hoarseness, No sore throat, No Rhinorrhea, No Swallowing Difficulty Eyes: No Eye Pain, No Swelling, No Redness, No Foreign Body, No Discharge, No Vision Changes Cardiovascular : No Chest Pain, No SOB, No Dyspnea on Exertion, No Orthopnea, No Edema, No Palpitations Respiratory : No Cough, No Sputum, No Wheezing, No Smoke Exposure, No Dyspnea Gastrointestinal : No Nausea, No Vomiting, No Diarrhea, No Constipation, No abdominal Pain, No Hematochezia, No Melena Genitourinary : no irregular bleeding, No Dysuria, No Urinary Frequency, No Hematuria, No Urinary Incontinence, No Urgency, No Flank Pain, No Urinary Flow Changes, No Hesitancy Musculoskeletal : No joint pain, No Myalgias, No Joint Swelling Skin : No Skin Lesions, No rash Neuro : No Weakness, No Numbness, No Paresthesias, No Loss of Consciousness, No Dizziness, No Headache Psych : No Anxiety/Panic, No Depression, No SI/HI/AH/VH, No Social Issues, Heme/Lymph: No Bruising, No Bleeding,No Lymphadenopathy Endocrine : No Polyuria, No Polydipsia, No Temperature Intolerance Course Course Course Narrative: Patient well-appearing -my interpretation of labs: Serology negative for influenza RSV and COVID -patient's vitals show a blood pressure of 96/58, however, per patient this is her baseline. Medical Decision Making Differential Diagnosis Differential Diagnoses: The differential diagnosis associated with the presentation includes (Viral URI, COVID, RSV, influenza) Lab Data MDM Lab Attestation statement: I reviewed the patient's lab results. Labs: Lab Results 02/06/24 Range/Units 22:11 Influenza Type A (PCR) NEGATIVE (Negative) Influenza Type B (PCR) NEGATIVE (Negative) RSV RNA Qual (PCR) NEGATIVE (Negative) SARS-CoV-2 RNA (RT-PCR) NEGATIVE (Negative) Discharge Plan Discharge Clinical Impression: Upper respiratory infection, viral Patient Disposition: Home, Self-Care Instructions: Upper Respiratory Infection (ED) Additional Instructions: Please follow-up with your primary care physician tomorrow. If you have any worsening or new symptoms, please return to the emergency room or call 911 Prescriptions: New Alicia-[place] Plus Mucus-Conges 10-200 mg capsule 2 tab-cap PO Q6H PRN (Reason: cough) Qty: 20 0RF No Action prednisone 20 mg tablet 40 mg PO DAILY 5 Days Qty: 10 0RF naproxen 500 mg tablet 500 mg PO Q8-12H PRN (Reason: pain (scale score 1-3)) Qty: 14 0RF Print Language: English
[2024-02-07 00:13] VITALS: BP 96/58; PULSE 83; RESP 18; TEMP 36.6; O2SAT 98
== END 2024-02-07 00:14 | disposition home or self-care (01) ==
PROVIDERS: Emergency Provider Emergency Medicine
DX: J06.9 Acute upper respiratory infection, unspecified (principal); R05.9 Cough, unspecified; Z03.818 Encounter for observation for suspected exposure to other biological agents ruled out
CPT/HCPCS: 0241U; 99283

== ENCOUNTER 2024-03-13 10:20 | Outpatient (REF) | payer MEDICAID, SELFPAY ==
[2024-03-13 12:26] LABS: HBS Num1 377.06 mIU/mL (0-7.99); HBc Num1 0.14 S/CO (0.00-0.79); HIV AB/AG Nonreactive (Nonreactive); HIV Num 1 0.06 S/CO (0.00-0.99); Hepatitis B Core Antibody Nonreactive (Nonreactive); Hepatitis B Surface Antigen Negative (Negative); ~HepC Num1 0.11 S/CO (0.00-0.79); ~Hepatitis B Surface Antibody REACTIVE (Nonreactive); ~Hepatitis C Antibody Nonreactive (Nonreactive)
[2024-03-13 12:27] LABS: Syphilis Screen Nonreactive (Nonreactive)
[2024-03-13 18:26] LABS: Bacterial Vaginosis PCR POSITIVE (Negative); Candida Group PCR NOT DETECTED (Not Detect); Candida glab krusei PCR NOT DETECTED (Not Detect); Trichomonas vaginalis PCR NOT DETECTED (Not Detect)
== END 2024-03-13 10:21 | disposition home or self-care (01) ==
LOC: HO.HHCL 10:20
PROVIDERS: Visit Provider Nurse Practitioner Family
DX: Z11.3 Encounter for screening for infections with a predominantly sexual mode of transmission (principal); R87.612 Low grade squamous intraepithelial lesion on cytologic smear of cervix (LGSIL); N76.0 Acute vaginitis
CPT/HCPCS: 0352U; 36415; 86704; 86706; 86780; 86803; 87340; 87389; 88175

== ENCOUNTER 2024-03-15 14:23 | Outpatient (REF) | payer MEDICAID, SELFPAY | END 2024-03-15 14:24 | disposition home or self-care (01) | LOC: HO.US 14:23 | PROVIDERS: PCP Student in an Organized Health Care Education/Training Program; Visit Provider Student in an Organized Health Care Education/Training Program | DX: R10.2 Pelvic and perineal pain (principal); N83.291 Other ovarian cyst, right side | CPT/HCPCS: 76830; 76856 ==

== ENCOUNTER 2024-07-08 14:29 | Outpatient (REF) | payer MEDICAID, SELFPAY ==
--- OUTSIDE RECORDS SUMMARY | 2024-07-08 17:15 | XMS_ITS | Encounter Summary ---
Author Organization [id number] Address [address] [place] [address] Care Team Providers Care Merchandise Coordinator Name Role Phone Micaela Chaudhary TUNNEL ELASTIC OPERATOR [employer] Primary Care Provider [phone] Micaela Chaudhary TUNNEL ELASTIC OPERATOR [employer] Primary Care Provider [phone] Reason for Visit * Reason Onset Date Comments Med Refill 04/06/2023 Encounter Details Date Type Department Care Team (Late st Contact Info) Description 04/06/2023 Refill [facility] MED[facility]INE [address] [place] [address] Magy Watts, IDA [address] [place] [address] Abnormal uterine bleeding Social History Tobacco Use Types Packs/Day Years Used Date Smoking Tobacco: Never Smokeless Tobacco: Never Alcohol Use Standard Drinks/Week Comments Not Currently 0 (1 standard drink = 0.6 oz pur e alcohol) Depression Answer Date Recorded Patient Health Questionnaire-9 Score 0 02/24/2023 Patient Health Questionnaire-9 Score 0 02/24/2023 Last PHQ-9: Questionnaire Data Not on file 1 Housing Stability Answer Date Recorded What is your housing situation today? I have housing today, but I am worried about losing housing in the future 02/20/[address] you li ve. Do you have problems with any of the following? None of the above 02/20/2023 Food Insecurity Answer Date Recorded Within the past 12 months, y ou worried that your food would run out before you got money to buy more: Never True 02/20/2023 Within the past 12 months,th e food you bought just didn't last and you didn't have enough money to get more: Never True Transportation Answer Date Recorded In the past 12 months, has l ack of transportation kept you from medical appts, meetings, work or from getting things needed for daily living? No 02/20/2023 Utilities Answer Date Recorded In the past 12 months, has t he electric, gas, oil or water company threatened to shut off services in your home? Yes 02/13/2023 Depression Answer Date Recorded Patient Health Questionnaire-2 Score 0 02/24/2023 Comments No Sex and Gender Information Value Date Recorded Sex Assigned at Female 03/07/2022 10:22 AM EDT Legal Sex Female 10:22 AM EDT Gender Identity Female 03/07/2022 10:22 AM EDT Sexual Orientation Straight 03/07/2022 10 :22 AM EDT documented as of this encounter Plan of Treatment Not on file documented as of this encounter Visit Diagnoses Diagnosis Abnormal uterine bleeding Unspecified disorder of menstruation and other abnormal bleeding from female genital tract documented in this encounter Additional Health Concerns Assessment Noted Time PHQ-9 Depression Total Score: 0 02/25/20 23 2:54 PM EDT documented as of this encounter Care Teams Merchandise Coordinator Relationship Specialty Start Date End Date Micaela Chaudhary NP [address] [place] [address] PCP - General Family Medicine 02/14/23 01/04/24 Micaela Chaudhary NP [address] [place] [address] PCP - General Family Medicine 01/05/24 documented as of this encounter
--- OUTSIDE RECORDS SUMMARY | 2024-07-08 17:15 | XMS_ITS | Encounter Summary ---
Author Organization [employer] Address [address] [address] Care Team Providers Care Industrial Relations Counselor Name Role Phone Lynette Cooper Primary Care Provider [phone] AppramMicaela SENIOR DRAFTER Primary Care Provider [phone] [employer], Micaela SENIOR DRAFTER Primary Care Provider [phone] Encounter Details Date Type Department Care Team (Late st Contact Info) Description 05/20/2022 Telephone [facility] MEDICINE [address] [place] [address] Lynette Cooper FNP [address] [place] [address] Dept [place] [address] Social History Tobacco Use Types Packs/Day Years Used Date Smoking Tobacco: Never Smokeless Tobacco: Never Comments Unknown Sex and Gender Information Value Date Recorded Sex Assigned at Female 03/07/2022 10:22 AM EDT Legal Sex Female 10:22 AM EDT Gender Identity Female 03/07/2022 10:22 AM EDT Sexual Orientation Straight 03/07/2022 10 :22 AM EDT COVID-19 Exposure Response Date Recorded In the last 10 days, have yo u been in contact with someone who was confirmed or suspected to have Coronavirus/COVID-19? No / Unsure 05/17/2022 9:29 AM EST documented as of this encounter Plan of Treatment Not on file documented as of this encounter Visit Diagnoses Not on filedocumented in this encounter Care Teams Industrial Relations Counselor Relationship Specialty Start Date End Date Lynette Cooper FNP PCP - General Family Medicine 09/24/21 02/13/23 Micaela Chaudhary NP [address] [place] [address] PCP - General Family Medicine 02/14/23 01/04/24 Micaela Chaudhary NP [address] [place] [address] PCP - General Family Medicine 01/05/24 documented as of this encounter
--- OUTSIDE RECORDS SUMMARY | 2024-07-08 17:15 | XMS_ITS | Clinical Summary ---
Author Organization [employer] Address [address] [place] [address] Care Team Providers Care Orthotic Aide Name Role Phone Micaela Chaudhary NP Primary Care Provider [phone] Allergies No known active allergies Medications acetaminophen (Tylenol Extra Strength) 500 MG tablet Take during menses, do not take more than 1000mg in 24h. May take with food. 21 tablet 4 Active docusate sodium (Colace) 100 MG capsule Take 1 tab po bid prn constipation 60 capsule 2 4 Active ibuprofen 800 MG tabletIndicati ons:Abnormal uterine bleeding TAKE 1 TABLET BY MOUTH EVERY 8 HOURS WITH FOOD FOR 7 DAYS FOR MENSTRUAL BLEEDING 21 tablet 4 Active metroNIDAZOLE (Metrogel) 0.75 % vaginal gelIndications :Acute vaginitis 1 applicator two times weekly x 12 week. Start after completion of oral medication 70 g 4 Active folic acid (Folvite) 800 MCG tablet Take 1 tablet (0.8 mg) by mouth Once per day. 30 tablet 11 4 025 Active Drospirenone (Slynd) 4 MG tablet Take 1 tablet by mouth Once per day. 28 tablet 11 5 Active norethindrone (Ortho Micronor) 0.35 MG tablet Take 1 tablet (0.35 mg) by mouth Once per day. 28 tablet 2 4 025 Discontin ued(Side effects) Active Problems Problem Noted Date Diagnosed Date Screening examination for venereal disease 03/13 Assessment & Plan (03/13/2024 12:24 PM EST): Hx of chlamydia Vaginal discharge with odor Plan Screening examination for veneral disease LGSIL on Pap smear of cervix 03/13/2024 Assessment & Plan (03/13/2024 1:15 PM EST): Positive pap smear 2022 LGSIL Plan Pap smear Acute vaginitis 03/13/2024 Assessment & Plan (03/13/2024 12:30 PM EST): Positive for vaginal discharge Positive for clue cells, Positive Whiff test Negative for Trich and WBC Plan Take medication as prescribed Screening breast examination 03/13/2024 Assessment & Plan (03/13/2024 1:11 PM EST): Breast examination normal. Negative for lumps, color change to nipples or areola. Negative for discharge from nipple . Positive for bilateral fibrous tissue. Denies pain. Breast self examination education, encounter for 03/13/2024 Assessment & Plan (03/13/2024 1:10 PM EST): Education on monthly self breast examination Dysmenorrhea 12/21/2023 Assessment & Plan (12/21/2023 1:01 PM EDT): Per Joaquin Padgett at her last apt in 03/2023 Pelvic ultrasound 06/2022 with 3.8cm right ovarian cyst, 6-12wk repeat ultrasound advised, which was previously ordered, but not done. had Normal TSH in 05/2022. -Called today CRS and check recent labs done in 12/08/2023, vaginal GN /ch were neg Takes iron 3 times a week ,states daily caused GI SE ,constipation -urine preg today Neg -yesterday episode of dizziness and nausea w pain appears associated w vasovagal symptoms from pain now resolved and states her period is looking at baseline now -check CBC,iron panel and TSH ,chem-will call w result --if anemia will need to increase iron to daily w vit C and add colace -Request today to [facility] linares to help sending again previous order TV/pelvic US ordered back in 02/2023 and gave phone # to pt of [facility] radiologist dep as well to schedule apt -f w PCP -will start micronor -denies tobacco smoking, no fx hx of breast ca ,no breast discomfort -explained possible SE to pt and states If not like it method will call to schedule apt given considering implant -this to help for contraception but also to try to help w dysmenorrhea and menorrhagia -Called today CRS and check recent labs done in 12/08/2023, vaginal GN /ch were neg--pt offered before and today again PREP but refusing ,advised condom use -work excuse today to start work tomorrow Viral upper respiratory tract infection 03/01/20 Overview (03/01/2023): -most likley cause of lightheadedness -symptomatic treatment: tylenol for fever/pain, OTC cough supressant/honey, steam inhalation -perform good hand and home Assessment & Plan (03/01/2023 10:43 AM EDT): -most likley cause of lightheadedness -symptomatic treatment: tylenol for fever/pain, OTC cough supressant/honey, steam inhalation -perform good hand and home hygiene to prevent further spread of infection Cyst of right ovary 03/01/2023 Overview (03/01/2023): -denies pelvic US needs to be repeated. Orders have been in place. patient encourgaged to have US completed -will call with results once US has been completed Assessment & Plan (03/01/2023 10:50 AM EDT): -denies pelvic pain at this time -US needs to be repeated. Order in place Vaginal discharge 02/12/2023 Assessment & Plan (03/13/2024 1:14 PM EST): Vaginal discharge with odor Plan Fern test Screening for veneral disease Assessment & Plan (02/12/2023 11:35 PM EDT): + for gardnerella 10/2022 +Savana and 06/2022 +Savana and + gardnerella ,10/2021 Chlamydia Requested today to [place] preg test -unfortunately No preg test done today only urine dipstick + blood but w vaginal bleeding oterhwise normal --I called pt and advised to take home preg test and to come to [facility] if + -BV and cg/gn test -will call pt w test result and tx if positive Anxiety 02/09/2023 Pelvic pain in female 04/21/2022 Assessment & Plan (12/13/2022 2:26 PM EDT): Patient declined pelvic exam, was with her young son today. She took self vaginal swab and will sent o lab. Due ot clinical s/s, I will teat as BV, I explained that it is not an STI so her partner doesn't need to be treated unless she comes up with another condition, we'll call her prn for that. Metronidazole x 7d Counseled to avoid intercourse while she takes metronidazole and fu w PCP Assessment & Plan (04/21/2022 11:40 AM EST): Patient reports recurrent episodes of BV and candidal vaginitis. Complaining of suprapubic pain, denies dysuria. Will send for pelvis US, BV, Urine culture, denies abnormal bowel movements. She requested referral to [facility], requested [place] to make appt with CNM. Anemia 07/14/2021 Assessment & Plan (03/01/2023 10:52 AM EDT): -mild anemia Lab Results Component Value Date HGB 10.9 (L) 02/10/2023 -encouraged to continue iron supplementation and increase dietary intake. -will recheck levels in 1 month Assessment & Plan (02/12/2023 11:38 PM EDT): Pt w dizziness , hx of anemia -urine preg test not done in clinic -it was requested only urine dipstick was performed -advised pt to do preg test at home-I called pt today to request to have test done and will resume iron -anemia labs -pt to f care w PCP Encounters Date Type Department Care Team Description 07/08/2024 2:00 PM EST Office Visit [facility] [address] [place] [address] Joaquin Wong CNM Abnormal uterine bleeding (AUB) (Primary Dx) 07/08/2024 Travel 07/03/2024 Telephone [facility] [address] [place] [address] Micaela Chaudhary NP No Show 06/28/2024 Telephone [facility] [address] [place] [address] Micaela Chaudhary NP Nurse Triage 04/09/2024 Telephone [facility] [address] [place] [address] Joaquin Wong CNM No Show from Last 3 Months Immunizations Name Administration Dates Next Due Pfizer Covid-19 Vaccine 12+ 04/21/2021, Tdap 02/13/2022 Family History Medical History Relation Name Comments Heart disease Father Anemia Mother Pancreatic cancer Paternal Grandfather Relation Name Status Comments Father Mother Paternal Grandfather Social History Tobacco Use Types Packs/Day Years Used Date Smoking Tobacco: Never Smokeless Tobacco: Never Tobacco Cessation:Counseling Given: Not Answered Alcohol Use Standard Drinks/Week Comments Not Currently 0 (1 standard drink = 0.6 oz pur e alcohol) Alcohol Answer Date Recorded Frequency of Alcohol Consumption Not on file 03/08/2024 Average Number of Drinks Not on file 024 Frequency of Binge Drinking Not on file 05/2023 Score 0 03/08/2024 Depression Answer Date Recorded Patient Health Questionnaire-9 Score 12 03/08/2024 Patient Health Questionnaire-9 Score 12 03/08/2024 Last PHQ-9: Questionnaire Data Not on file 1 05/08/2023 Housing Stability Answer Date Recorded What is your housing situation today? I have tristian balderas 03/01/[address] you li ve. Do you have problems with any of the following? None of the above 03/01/2024 Food Insecurity Answer Date Recorded Within the past 12 months, y ou worried that your food would run out before you got money to buy more: Never True 03/01/2024 Within the past 12 months,th e food you bought just didn't last and you didn't have enough money to get more: Never True Transportation Answer Date Recorded In the past 12 months, has l ack of transportation kept you from medical appts, meetings, work or from getting things needed for daily living? No 03/01/2024 Utilities Answer Date Recorded In the past 12 months, has t he electric, gas, oil or water company threatened to shut off services in your home? No 03/01/2024 Depression Answer Date Recorded Patient Health Questionnaire-2 Score 3 03/08/2024 Internet Access Answer Date Recorded Internet Access Q1 Yes 03/01/2024 Internet Access Q2 Not on file 03/01/2024 Comments No Sex and Gender Information Value Date Recorded Sex Assigned at Female 03/07/2022 10:22 AM EDT Legal Sex Female 10:22 AM EDT Gender Identity Female 03/07/2022 10:22 AM EDT Sexual Orientation Straight 03/07/2022 10 :22 AM EDT Last Filed Vital Signs Vital Sign Reading Time Taken Comments Blood Pressure 106/65 07/08/2024 2:12 PM EST Pulse 83 07/08/2024 2:12 PM EST Temperature 36.8 ??C (98.2 ??F) 07/08/2024 2:12 PM ES T Respiratory Rate 18 07/08/2024 2:12 PM EST Oxygen Saturation 98% 07/08/2024 2:12 PM EST Inhaled Oxygen Concentration - - Weight 57.6 kg (127 lb) 07/08/2024 2:12 PM EST Height 160 cm (5' 3 ) 07/08/2024 2:12 PM EST Body Mass Index 22.5 07/08/2024 2:12 PM EST Plan of Treatment Health Maintenance Due Date Last Done Comments Dental Oral Exam 08/11/2011 02/08/2011 Dental Prophylaxis 08/11/2011 02/08/2011, 02/08/2011 Dental X-Ray: Bitewings 08/09/2012 08/09/19 12, 02/08/2011 HPV Vaccines (1 - 3-dose series) 2013 Dental X-Ray: Full Mouth 02/09/2014 02/08/2011 Hepatitis B Vaccines (1 of 3 - 19+ 3-dose series) 2017 COVID-19 Vaccine (2023-2 5 season) 2024 04/21/2021, 03/31/2021 Influenza Vaccine (#1) 2024 Depression Monitoring (PHQ-9) 09/05/2024, 03/08/2024 SDOH Screening 03/01/2025 03/01/2024 Alcohol/Substance Use Screening 03/08/2025 03/08/2024 Depression Screening 03/08/2025 03/08/2024, 03/08/2024 Pap Smear 03/13/2025 03/13/2024, 05/17/2022, 05/17/2022 Family Planning (PISQ) 07/08/2025 07/08/2024 Tobacco Screening 07/08/2025 07/08/2024 DTaP/Tdap/Td Vaccines (2 - T d or Tdap) 02/14/2032 02/13/2022 Zoster Vaccines (1 of 2) 2048 RSV Patients and Patients Aged 60 years or older (1 - 1-dose 75+ series) 2073 HIV Screening Completed 03/13/2024, 03/16/2023, 09/24/2021 Hepatitis C Screening Completed 03/13/2024 , 09/24/2021 HIB Vaccines Aged Out No longer eligi ble based on patient's age to complete this topic Hepatitis A Vaccines Aged Out No long er eligible based on patient's age to complete this topic IPV Vaccines Aged Out No longer eligi ble based on patient's age to complete this topic Meningococcal Vaccine Aged Out No viviana byron eligible based on patient's age to complete this topic Pneumococcal Vaccine: Pediatrics (0 to 5 Years) and At-Risk Patients (6 to 49) Years) Aged Out No longer eligible b ased on patient's age to complete this topic RSV under 20 months Aged Out No longe r eligible based on patient's age to complete this topic Rotavirus Vaccines Aged Out No longer eligible based on patient's age to complete this topic Procedures Procedure Name Priority Date/Time Associated Diagnosis Comments APTT Routine 07/08/2024 4:00 PM EST Abnormal uterine bleeding (AUB) PROTHROMBIN TIME-INR Routine 07/08/2024 4:00 PM EST Abnormal uterine bleeding (AUB) CBC Routine 07/08/2024 4:00 PM EST Abnormal uterine bleeding (AUB) HEPATITIS C AB W/REFL TO HCV RNA, QN, PCR Routine 03/13/2024 10:25 AM EST Screening examination for venereal disease HIV 1/2 ANTIGEN/ANTIBODY, FOURTH GENERATION W/RFL Routine 03/13/2024 10:25 AM EST Screening examination for venereal disease PAP SMEAR Routine 03/13/2024 10:25 AM EST LGSIL on Pap smear of cervix BITEWINGS - 4 RADIOGRAPHIC IMAGES Routine 08/09/2011 12:00 AM EDT PROPHYLAXIS - ADULT Routine 02/08/2011 1 2:00 AM EDT INTRAORAL - COMPLETE SERIES OF RADIOGRAPHIC IMAGES Routine 02/08/2011 12:00 AM EDT COMPREHENSIVE ORAL EVALUATION - NEW OR ESTABLISHED PATIENT Routine 02/08/2011 12:00 AM EDT from Last 3 Months or Most Recently Relevant to Health Maintenance Results * Partial Thromboplastin Time, Activated (APTT) (07/08/2024 4:00 PM EST) Partial Thromboplastin Time 29.0 26.0 - 36.8 SEC [facility] Comment:For information rega rding the monitoring of direct thrombininhibitors, please refer to Pharmacy. Blood Venous blood specimen / Unknown 07/08/2024 4:00 PM EST 07/08/2024 4:00 PM EST us Joaquin Wong [facility] BLOOD ORDERABLES Mandie l Result [facility] [address] [place] [phone] * Prothrombin Time-INR (07/08/2024 4:00 PM EST) Prothrombin Time 11.3 10.9 - 12.4 SEC [facility] INTERNATIONAL NORM RATIO 1.0 0.9 - 1.1 [facility] Comment:INTERNATIONAL NORMAL IZED RATIO (INR) REFERENCE RANGES Reference RangeFor patients not on anticoagulant therapy: 0.9 - 1.1INR ranges for oral anticoagulanttherapy:For prevention and treatment of venous thrombosis and pulmonary embolism: 2.0 - 3.0For acute myocardial infarction with aspirin therapy: 2.0 - 3.0For acute myocardial infarction without aspirin therapy: 3.0 - 4.0For patients with mechanical prosthetic heart valves: 2.5 - 3.5 Blood Venous blood specimen / Unknown 07/08/2024 4:00 PM EST 07/08/2024 4:00 PM EST us Joaquin Wong [facility] BLOOD ORDERABLES Mandie tavares Result [facility] [address] [place] [phone] * (ABNORMAL) CBC (07/08/2024 4:00 PM EST) White Blood Count 7.2 4.8 - 10.8 X10*3/uL [facility] Red Blood Count 4.25 4.20 - 5.50 X10*6/uL [facility] Hemoglobin 10.7(L) 12.0 - 16.0 g/dl [facility] Hematocrit 33.7(L) 37.0 - 47.0 % [facility] Mean Corpuscular Volume 79.3(L) 80.0 - 98.0 fL [facility] Mean Corpuscular Hemoglobin 25.2(L) 27.0 - 33.0 pg [facility] Mean Corpuscular HGB Conc 31.8 31.0 - 35.0 g/dl [facility] Red Cell Distribution Width 15.1 11.0 - 16.0 % [facility] Platelet Count 320 160 - 400 X10*3/uL [facility] Mean Platelet Volume 11.2 9.4 - 12.3 fL [facility] NRBC Pct Auto 0.0 0.0 - 0.2 /100WBC [facility] NRBC Abs Auto 0.000 0.0 - 0.012 X10*3/uL [facility] Blood Venous blood specimen / Unknown 07/08/2024 4:00 PM EST 07/08/2024 4:00 PM EST Joaquin Wong CN LAB BLOOD ORDERABLES Mandie l Result Performing Organization Address City/[facility]/ZIP Co de Phone Number [facility] [address] [place] [phone] * Hepatitis C Antibody with Reflex to HCV, RNA, Quantitative, Real-Time PCR (03/13/2024 10:25 AM EST) Hepatitis C Antibody Nonreactive Nonreactive [facility] Comment:Antibodies to HCV no t detected; does not exclude early acuteHCV infection. Blood Venous blood specimen / Unknown 03/13/2024 10:25 AM EST 03/13/2024 11:35 AM EST us Zeina Okmiguel angel [facility] BLOOD ORDERABLES Final Res ult Performing Organization Address [facility]/ZIP Co de Phone Number [facility] [address] [place] [phone] * HIV-1/2 Antigen and Antibodies, Fourth Generation, with Reflexes (03/13/2024 10:25 AM EST) HIV AB/AG Nonreactive Nonreactive [facility] Comment:HIV-1 p24 Ag and/or HIV-1/HIV-2 Ab not detected.A test result that is nonreactive does not exclude thepossibility of exposure to or infection with HIV-1 and/orHIV-2. Nonreactive results in this assay for individualswith prior exposure to HIV-1 and/or HIV-2 may be due toantigen and antibody levels that are below the limit ofdetection of this assay.The [employer] HIV Ag/Ab Combo assay result andsupplemental assay results should be interpreted inconjunction with the patient's clinical presentation,history and other laboratory results. If the results areinconsistent with clinical evidence, additional testing issuggested to confirm the result. Blood Venous blood specimen / Unknown 03/13/2024 10:25 AM EST 03/13/2024 11:35 AM EST Zeina GARCIA LAB BLOOD ORDERABLES Final Res ult [facility] [address] [place] [phone] * Pap Smear (03/13/2024 10:25 AM EST) Swab Cervix uteri structure / Unknown 03/13/2024 10:25 AM EST 03/14/2024 8:45 AM EST Narrative [facility] - 03/19/2024 10:32 AM EST ----- ------- Name: Jessica Jarrell ? Age/Sex: 23/F ? : 2000 Unit#: [id number] ?? Attend Dr: Zeina Sue ?Re03/13/24 ?Status: DEP REF ? Location: [facility] ? Disch: ? ----- ------- SPEC : [id number] ?RECD: 03/14/24 ? STATUS: ??SOUT ? REQ NUM: [id number] ? AVRIL: 03/13/24 ? SUBM DR: JOAQUIN WONG CNM ? ENTERED: ??03/14/24 ?SP TYPE: Pap Smr ?OTHR : ? ORDERED: ??Pap Smear, PAP path review ? Interpretation ?? General Category: ? Negative for intraepithelial lesion/malignancy. ?? Adequacy: ? Endocervical component present. ?? Interpretation: ? Inflammation with associated cellular changes. ?Shift in vaginal josé. ?Clinical Information LMP: Unknown date Previous PAP test: 2022, LGSIL ? Material Received ?? ThinPrep-Cervical ----- ------- Signed (signature on file) Hermann Barfield MD 03/19/24 1032 ? ----- ------- ? END OF REPORT ? us Joaquin Wong [facility] CYTOLOGY ORDERABLES F inal Result [facility] [address] [place] [phone] from Last 3 Months or Most Recently Relevant to Health Maintenance Insurance [facility] [address] [address] [employer] ST[employer] ADULT Care Teams Orthotic Aide Relationship Specialty Start Date End Date Micaela Chaudhary NP [address] [place] [phone] PCP - General Family Medicine 01/05/24
--- OUTSIDE RECORDS SUMMARY | 2024-07-08 17:15 | XMS_ITS | Encounter Summary ---
Author Organization [employer] Address [address] [place] [address] Care Team Providers Care Hoeing Row Boss Name Role Phone Micaela Chaudhary NP Primary Care Provider [phone] Micaela Chaudhary NP Primary Care Provider [phone] Reason for Visit * Reason Onset Date Comments Med Refill 09/23/2023 Encounter Details Date Type Department Care Team (Late st Contact Info) Description 09/23/2023 Refill [facility] [address] [place] [address] Micaela Chaudhary NP [address] [place] [address] Abnormal uterine bleeding Social History Tobacco Use [...] documented as of this encounter Care Teams Hoeing Row Boss Relationship Specialty Start Date End Date Micaela Chaudhary NP [address] [place] [address] PCP - General Family Medicine 02/14/23 01/04/24 Micaela Chaudhary NP [address] [place] [address] PCP - General Family Medicine 01/05/24 documented as of this encounter
--- OUTSIDE RECORDS SUMMARY | 2024-07-08 17:15 | XMS_ITS | Encounter Summary ---
Author Organization [employer] Address [address] [place] [address] Care Team Providers Care Associate Professor Of Law Name Role Phone Micaela Chaudhary NP Primary Care Provider [phone] Reason for Visit * Reason Onset Date Comments Med Refill 02/01/2024 Encounter Details Date Type Department Care Team (Late st Contact Info) Description 02/01/2024 Refill [facility] [address] [place] [address] Micaela Chaudhary NP [address] [place] [address] Social History Tobacco Use Types Packs/Day Years [...] Diagnoses Not on filedocumented in this encounter Additional Health Concerns Assessment Noted Time PHQ-9 Depression Total Score: 0 02/25/20 23 2:54 PM EDT documented as of this encounter Care Teams Associate Professor Of Law Relationship Specialty Start Date End Date Micaela Chaudhary NP [address] [place] [phone] PCP - General Family Medicine 01/05/24 documented as of this encounter
--- OUTSIDE RECORDS SUMMARY | 2024-07-08 17:15 | XMS_ITS | Encounter Summary ---
Author Organization [employer] Address [address] [place] [address] Care Team Providers Care Top Cleaner Name Role Phone Lynette Cooper FIFTH GRADE TEACHER Primary Care Provider [phone] AppramMicaela EYE CLINIC MANAGER Primary Care Provider [phone] Appram, Micaela EYE CLINIC MANAGER Primary Care Provider [phone] Encounter Details Date Type Department Care Team (Late st Contact Info) Description 05/25/2022 Orders Only [facility] [address] [place] [address] Magy Watts, MARY [address] [place] [address] Social History Tobacco Use Types Packs/Day Years [...] on file documented as of this encounter Procedures Procedure Name Priority Date/Time Associated Diagnosis Comments PAP SMEAR Routine 05/17/2022 12:00 AM EST documented in this encounter Results * (ABNORMAL) Pap Smear (05/17/2022 12:00 AM EST) Swab Narrative [facility] - 05/17/2022 12:00 AM EST LSIL pap, repeat in 1 year Magy Watts [facility] CYTOLOGY ORDERABLES E dited Result - Final [facility] [address] [facility], [facility], [place] [phone] documented in this encounter Visit Diagnoses Not on filedocumented in this encounter Care Teams Top Cleaner Relationship Specialty Start Date End Date Lynette Cooper FNP PCP - General Family Medicine 09/24/21 02/13/23 Micaela Chaudhary NP [address] [place] [phone] PCP - General Family Medicine 02/14/23 01/04/24 Micaela Chaudhary NP [address] [place] [phone] PCP - General Family Medicine 01/05/24 documented as of this encounter
--- OUTSIDE RECORDS SUMMARY | 2024-07-08 17:15 | XMS_ITS | Encounter Summary ---
Author Organization [employer] Address [address] [place] [address] Care Team Providers Care Senior Program Manager Name Role Phone Westnicky Micaela CARR Primary Care Provider [phone] Reason for Visit * Reason Comments Med Refill Encounter Details Date Type Department Care Team ([facility] st Contact Info) Description 03/07/2024 Refill [facility] [address] [place] [address] Kat Coley MD [address] [place] [address] Social History Tobacco Use Types Packs/Day Years [...] AM EDT documented as of this encounter Miscellaneous Notes * Telephone Encounter - Micaela Chaudhary NP - 03/08/2024 4:52 PM EDT Patient states she not taking the medication at this time documented in this encounter Plan of Treatment Not on file documented as of this encounter Visit Diagnoses Not on filedocumented in this encounter Additional Health Concerns Assessment Noted Time PHQ-9 Depression Total Score: 0 02/25/20 23 2:54 PM EDT documented as of this encounter Care Teams Senior Program Manager Relationship Specialty Start Date End Date Micaela Chaudhary NP [address] [place] [phone] PCP - General Family Medicine 01/05/24 documented as of this encounter
--- OUTSIDE RECORDS SUMMARY | 2024-07-08 17:15 | XMS_ITS | Encounter Summary ---
Author Organization [employer] Address [address] [place] [address] Care Team Providers Care Recruitment Consultant Name Role Phone Lynette Cooper Primary Care Provider [phone] AppramMicaela BAKERY SALES CLERK Primary Care Provider [phone] AppramMicaela BAKERY SALES CLERK Primary Care Provider [phone] Reason for Visit * Reason Onset Date Comments Appointment Request 10/31/2022 Encounter Details Date Type Department Care Team (Late st Contact Info) Description 10/31/2022 Telephone [facility] MEDICINE [address] [place] [address] Lynette Cooper FNP [address] [place] [address] Dept [place] [address] Appointment Request Social History Tobacco Use Types Packs/Day Years Used Date Smoking Tobacco: Never Smokeless Tobacco: Never Alcohol Use Standard Drinks/Week Comments Not Currently 0 (1 standard drink = 0.6 oz pur e alcohol) Comments Unknown Sex and Gender Information Value [...] suspected to have Coronavirus/COVID-19? No / Unsure 11/01/2022 3:01 PM EDT documented as of this encounter Miscellaneous Notes * Telephone Encounter - Marga Ted - 10/31/2022 9:26 AM EDT Tc from patient requesting to r/s office visit with Dr. Watts on 10/31/22. Patient went to [facility] and was unaware it was at [facility]. Details: F/U: heavy vaginal bleeding documented in this encounter Plan of Treatment Not on file documented as of this encounter Visit Diagnoses Not on filedocumented in this encounter Care Teams Recruitment Consultant Relationship Specialty Start Date End Date Lynette Cooper FNP PCP - General Family Medicine 09/24/21 02/13/23 Micaela Chaudhary NP [address] [place] [address] PCP - General Family Medicine 02/14/23 01/04/24 Micaela Chaudhary NP [address] [place] [address] PCP - General Family Medicine 01/05/24 documented as of this encounter
--- OUTSIDE RECORDS SUMMARY | 2024-07-08 17:15 | XMS_ITS | Encounter Summary ---
Author Organization [employer] Address [address] [place] [address] Care Team Providers Care Web Site Designer Name Role Phone Lynette Cooper Primary Care Provider [phone] AppramMicaela SHOWER ROOM ATTENDANT Primary Care Provider [phone] AppramMicaela SHOWER ROOM ATTENDANT Primary Care Provider [phone] Reason for Visit * Reason Onset Date Comments US results 06/14/2022 Encounter Details Date Type Department Care Team (Late st Contact Info) Description 06/14/2022 Telephone [facility] MEDICINE [address] [place] [address] Lynette Cooper FNP 75 [facility] [place] [address] US results Social History Tobacco Use Types Packs/Day Years [...] suspected to have Coronavirus/COVID-19? No / Unsure 06/08/2022 10:00 AM EST documented as of this encounter Miscellaneous Notes * Telephone Encounter - Savita Smyth - 06/14/2022 12:03 PM EST Tc from pt requesting US results . documented in this encounter Plan of Treatment Not on file documented as of this encounter Visit Diagnoses Not on filedocumented in this encounter Care Teams Web Site Designer Relationship Specialty Start Date End Date Lynette Cooper FNP PCP - General Family Medicine 09/24/21 02/13/23 Micaela Chaudhary NP [address] [place] [address] PCP - General Family Medicine 02/14/23 01/04/24 Micaela Chaudhary NP [address] [place] [address] PCP - General Family Medicine 01/05/24 documented as of this encounter
--- OUTSIDE RECORDS SUMMARY | 2024-07-08 17:15 | XMS_ITS | Encounter Summary ---
Author Organization [employer] Address [address] [facility] [address] [place] [address] Care Team Providers Care Food Counselor Name Role Phone Neena Micaela CARR Primary Care Provider [phone] Reason for Visit * Reason Onset Date Comments Med Refill 02/01/2024 Encounter Details Date Type Department Care Team (Late st Contact Info) Description 02/01/2024 Refill [facility] [address] [place] [address] Kat Coley MD [address] [place] [address] Social History Tobacco Use Types Packs/Day Years [...] documented as of this encounter Care Teams Food Counselor Relationship Specialty Start Date End Date Micaela Chaudhary NP [address] [place] [address] PCP - General Family Medicine 01/05/24 documented as of this encounter
--- OUTSIDE RECORDS SUMMARY | 2024-07-08 17:15 | XMS_ITS | Encounter Summary ---
Author Organization [employer] Address [address] [facility] [address] [place] [address] Care Team Providers Care Regulatory Lead Name Role Phone Lynette Cooper Sarai RAILWAY SIGNAL TECHNICIAN Primary Care Provider [phone] AppraMicaela saunders NP Primary Care Provider [phone] Micaela Chaudhary AIRWAY TRAFFIC CONTROLLER Primary Care Provider [phone] Reason for Visit * Reason Onset Date Comments Med Refill 10/24/2022 Encounter Details Date Type Department Care Team (Late st Contact Info) Description 10/24/2022 Refill [facility] MEDICINE [address] [place] [address] Magy Watts CNM 230 [place] [address] Abnormal uterine bleeding Social History Tobacco Use [...] encounter Miscellaneous Notes * Telephone Encounter - Magy Watts CNM - 10/25/2022 3:18 PM EDT Noted, thanks. * Telephone Encounter - Dayanara Gallardo RN - 10/25/2022 2:51 PM EDT T/C placed to centralized scheduling. They stated pt no showed to US 09/02/22. They called her to R/S and she declined. T/C placed to pt. Pt reports very heavy menstrual bleeding still. Is requesting dose increase on ibuprofen to 800mg as she reports 800mg works the best for bleeding and cramping. Pt states is agreeable to r/s US. Texted her the number for centralized scheduling via [employer] text. Scheduled F/U with Magy for 10/31 as pt requested 9am appt. Pt verbalized understanding and denied having anyfurther questions or concerns at this time. * Telephone Encounter - Magy Watts CNM - 10/25/2022 9:00 AM EDT Ibuprofen previously prescribed to treat single episode of abnormal bleeding. Is she still having abnormal periods? If so, needs followup. Also, repeat ultrasound ordered 06/2022 to f/u on ovarian cyst. Did she ever have this done? Thanks! documented in this encounter Plan of Treatment Not on file documented as of this encounter Visit Diagnoses Diagnosis Abnormal uterine bleeding Unspecified disorder of menstruation and other abnormal bleeding from female genital tract documented in this encounter Care Teams Regulatory Lead Relationship Specialty Start Date End Date Lynette Cooper FNP PCP - General Family Medicine 09/24/21 02/13/23 Micaela Chaudhary NP [address] [place] [address] PCP - General Family Medicine 02/14/23 01/04/24 Micaela Chaudhary NP [address] [place] [address] PCP - General Family Medicine 01/05/24 documented as of this encounter
--- OUTSIDE RECORDS SUMMARY | 2024-07-08 17:15 | XMS_ITS | Encounter Summary ---
Author Organization [employer] Address [address] [facility] [address] 7[address] [place] [address] Care Team Providers Care Bicycle Messenger Name Role Phone Micaela Chaudhary NP Primary Care Provider [phone] Reason for Visit * Reason Onset Date Comments Med Refill 02/01/2024 Encounter Details Date Type Department Care Team (Late st Contact Info) Description 02/01/2024 Refill [facility] MEDICINE [address] [place] [address] Micaela Chaudhary NP [address] [place] [address] Abnormal uterine bleeding Social History Tobacco Use [...] documented as of this encounter Care Teams Bicycle Messenger Relationship Specialty Start Date End Date Micaela Chaudhary NP [address] [place] [address] PCP - General Family Medicine 01/05/24 documented as of this encounter
--- OUTSIDE RECORDS SUMMARY | 2024-07-08 17:16 | XMS_ITS | Encounter Summary ---
Author Organization [employer] Address [address] [facility] [address] [place] [address] Care Team Providers Care Diffusion Furnace Operator Name Role Phone WestMicaela saunders BRUNO Primary Care Provider [phone] Encounter Details Date Type Department Care Team (Latest Contact Info) Description 07/08/2024 Travel Social History Tobacco Use Types Packs/Day Years [...] Assessment Noted Time PHQ-9 Depression Total Score: 12 024 3:23 PM EDT documented as of this encounter Care Teams Diffusion Furnace Operator Relationship Specialty Start Date End Date Micaela Chaudhary NP [address] [place] [address] PCP - General Family Medicine 01/05/24 documented as of this encounter
--- OUTSIDE RECORDS SUMMARY | 2024-07-08 17:16 | XMS_ITS | Encounter Summary ---
Author Organization [employer] Address [address] [facility] [address] [place] [address] Care Team Providers Care Aircraft Loadmaster Superintendent Name Role Phone Micaela Chaudhary NP Primary Care Provider [phone] Reason for Visit * Reason Onset Date Comments No Show 07/03/2024 Encounter Details Date Type Department Care Team ([facility] st Contact Info) Description 07/03/2024 Telephone [facility] MEDICINE [address] [place] [address] Micaela Chaudhary NP [address] [place] [address] No Show Social History Tobacco Use Types Packs/Day Years [...] the past 12 months, has t he SDI, gas, oil or water [employer] threatened to shut off services in your [...] encounter Miscellaneous Notes * Telephone Encounter - Tejal Galeano RN - 07/03/2024 11:46 AM EST TC x 2 placed to pt via S diamond driller (Fernanda ID#[id number]) regarding missed sick on site with PCP. Ptstates she did not want the appointment with Micaela and wanted to see Magy. Pt appointment was supposed to be cancelled for 07/03/24 with Micalea as she is being seen by Magy on 07/08/24. Pt deniesfurther questions or concerns at this time. * Telephone Encounter - Carmen Jarrell - 07/03/2024 11:34 AM EST Patient no show to [facility] appointment on 07/03/24. documented in this encounter Plan of Treatment Not on file documented as of this encounter Visit Diagnoses Not on filedocumented in this encounter Additional Health Concerns Assessment Noted Time PHQ-9 Depression Total Score: 12 024 3:23 PM EDT documented as of this encounter Care Teams Aircraft Loadmaster Superintendent Relationship Specialty Start Date End Date Micaela Chaudhary NP [address] [place] [address] PCP - General Family Medicine 01/05/24 documented as of this encounter
--- OUTSIDE RECORDS SUMMARY | 2024-07-08 17:16 | XMS_ITS | Encounter Summary ---
Author Organization [email or web address] Address [address] [facility] [address] [place] [address] Care Team Providers Care Thermograph Operator Name Role Phone Micaela Chaudhary AIR QUALITY CONSULTANT Primary Care Provider [phone] Micaela Chaudhary AIR QUALITY CONSULTANT Primary Care Provider [phone] Reason for Visit * Reason Onset Date Comments Med Refill 05/22/2023 Encounter Details Date Type Department Care Team (Late st Contact Info) Description 05/22/2023 Refill [facility] MEDICINE [address] [place] [address] Magy Watts, IDA [address] [place] [address] Social History Tobacco Use Types Packs/Day Years [...] documented as of this encounter Care Teams Thermograph Operator Relationship Specialty Start Date End Date Micaela Chaudhary NP [address] [place] [address] PCP - General Family Medicine 02/14/23 01/04/24 Micaela Chaudhary NP [address] [place] [address] PCP - General Family Medicine 01/05/24 documented as of this encounter
--- OUTSIDE RECORDS SUMMARY | 2024-07-08 17:16 | XMS_ITS | Encounter Summary ---
Author Organization [employer] Address [address] [facility] [address] [place] [address] Care Team Providers Care Systems Testing Laboratory Technician Name Role Phone Micaela Chaudhary NP Primary Care Provider [phone] Reason for Visit * Reason Onset Date Comments Nurse Triage 06/28/2024 Encounter Details Date Type Department Care Team (Late st Contact Info) Description 06/28/2024 Telephone [facility] MEDICINE 230 [place] [address] Micaela Chaudhary NP 230 [place] [address] Nurse Triage Social History Tobacco Use Types Packs/Day Years [...] the past 12 months, has t he [employer], gas, oil or water [employer] threatened to shut off services in your [...] encounter Miscellaneous Notes * Telephone Encounter - Kerri Jacobo RN - 06/28/2024 4:17 PM EST called pt to triage, spoke to pt. pt states her periods have been irregular and unusual for the past 1-2 months and requesting appt. pt states her last period that was mostly normal started on 06/08 and then stopped after a few days. then started up again on 06/15 with spotting and occasional small blood clots, and a strong odor. pt states had some mild ovarian pain a few days ago but nothing since. pt unsure if she could be and has not taken a home test. pt denies current heavy flow, pain, urinary symptoms, vomiting, heavy flow, dizziness or other associated symptoms. given appt with PCP Monday at 11:15 for exam. advised home care: rest, fluids, monitor symptoms, and take a home p regnancy test over the weekend. advised if any severe bleeding or pain to seek ER evaluation. pt understands and agrees with plan. insurance verified. Protocol Used: Vaginal Bleeding - Abnormal (Adult) Protocol-Based Disposition: See in Office or Video Visit within 2 Weeks Positive Triage Question: * Periods last > 7 days * All higher-acuity triage questions were negative Care Advice Discussed: * Reassurance and Education - Short or Long Menstrual Cycles * Test, When in Doubt * Iron and Anemia * Reasons To Call Back - Severe abdomen pain or lightheadedness occurs - test is positive - Bleeding worsens - Bleeding or spotting lasts over 7 days - You become worse * Telephone Encounter - Carmen Callejas - 06/28/2024 3:53 PM EST Symptom: Vaginal Bleeding - Not Outcome: Schedule an appointment to be seen within 24 hours Reason: Caller denied all higher acuity questions The caller accepted this outcome. [phone] *denied triage documented in this encounter Plan of Treatment Not on file documented as of this encounter Visit Diagnoses Not on filedocumented in this encounter Additional Health Concerns Assessment Noted Time PHQ-9 Depression Total Score: 12 024 3:23 PM EDT documented as of this encounter Care Teams Systems Testing Laboratory Technician Relationship Specialty Start Date End Date Micaela Chaudhary NP [address] [place] [address] PCP - General Family Medicine 01/05/24 documented as of this encounter
--- OUTSIDE RECORDS SUMMARY | 2024-07-08 17:16 | XMS_ITS | Encounter Summary ---
Author Organization [employer] Address [address] [facility] [address] 7[address] [place] [address] Care Team Providers Care Manufacturing Maintenance Manager Name Role Phone Micaela Chaudhary NP Primary Care Provider [phone] Encounter Details Date Type Department Care Team ([facility] st Contact Info) Description 07/08/2024 2:00 PM EST Office Visit [facility] MEDICINE [address] [place] [address] Magy Watts CNM [address] [place] [address] Abnormal uterine bleeding (AUB) (Primary Dx) Social History Tobacco Use Types Packs/Day Years [...] AM EDT documented as of this encounter Last Filed Vital Signs Vital Sign Reading [...] Mass Index 22.5 07/08/2024 2:12 PM EST documented in this encounter Progress Notes * Magy Watts CNM - 07/08/2024 2:00 PM EST Subjective Patient ID: Jessica Jarrell is a 23 y.o. female who presents for TECHNICAL EDITOR visit Here with sons. Chronic AUB, now having prolonged/frequent bleeding. LMP 2/ x 8 d, then started bleeding again 06/18 to today. Very crampy and with clots. Home test negative last week. No vaginal/urinary symptoms. No change in partner. No pain or bleeding with sex. Prefers to defer pelvic exam today. Pap NIL 03/2024, preceded by LSIL. Pap due 03/2025. 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 Hasn't been using during bleeding. Gonorrhea/Chlamydia neg 01/2024, trichomonas neg 02/2024. No worrisome findings on 05/2024 pelvic ultrasound, simple small bilateral ovarian cysts, no followup needed. Review of Systems Genitourinary: Positive for menstrual problem and pelvic pain. Negative for dyspareunia, dysuria and vaginal discharge. Objective BP 106/65 (BP Location: Right arm, Patient Position: Sitting, BP Cuff Size: Adult) Pulse 83 Temp 98.2 ??F (36.8 ??C) (Temporal) Resp 18 Ht 5' 3 (1.6 m) Wt 127 lb (57.6 kg) SpO2 98% BMI22.50 kg/m?? Physical Exam Constitutional: Appearance: Normal appearance. Neurological: Mental Status: She is alert. Psychiatric: Mood and Affect: Mood normal. Behavior: Behavior normal. Assessment/Plan Diagnoses and all orders for this visit: Abnormal uterine bleeding (AUB) - TSH W/Reflex to FT4; Future - CBC; Future - hCG, Total, Quantitative; Future - Prothrombin Time-INR; Future - Partial Thromboplastin Time, Activated (APTT); Future - von Willebrand Antigen, Multimeric; Future Recheck TSH/cbc as precaution. Unable to urinate for test, will check serum hcg. In lightof long history and progressively heavier/prolonged bleeding, will do bleeding workup as well. Open to short course of oral contraceptive pill as NSAIDS haven't been helpful. Slynd rx sent in. Start today. Report if bleeding gets heavier. Okay if no menses while on this pill. If serum hcg positive, will stop oral contraceptive pill. If all labs normal/negative, will refer to TECHNICAL EDITOR for consideration of Endometrial biopsy. Other orders - Drospirenone (Slynd) 4 MG tablet; Take 1 tablet by mouth Once per day. documented in this encounter Plan of Treatment Scheduled Orders Name Type Priority Associated Diagnoses Orde r Schedule TSH W/Reflex to FT4 Lab Routine Abnormal uterine bleeding (AUB) Expected: 07/08/2024 (Approximate), Expires: 07/08/2025 hCG, Total, Quantitative Lab Routine Abnormal uterine bleeding (AUB) Expected: 07/08/2024 (Approximate), Expires: 07/08/2025 von Willebrand Antigen, Multimeric Lab Routine Abnormal uterine bleeding (AUB) Expected: 07/08/2024 (Approximate), Expires: 07/08/2025 documented as of this encounter Procedures Procedure Name Priority Date/Time Associated Diagnosis Comments APTT Routine 07/08/2024 4:00 PM EST Abnormal uterine bleeding (AUB) PROTHROMBIN TIME-INR Routine 07/08/2024 4:00 PM EST Abnormal uterine bleeding (AUB) CBC Routine 07/08/2024 4:00 PM EST Abnormal uterine bleeding (AUB) documented in this encounter Results * Partial Thromboplastin Time, Activated (APTT) (07/08/2024 4:00 PM EST) Partial Thromboplastin Time 29.0 26.0 - 36.8 SEC [facility] Comment:For information rega rding the monitoring of direct thrombininhibitors, please refer to Pharmacy. Blood Venous blood specimen / Unknown 07/08/2024 4:00 PM EST 07/08/2024 4:00 PM EST us Magy aWtts CNM LAB BLOOD ORDERABLES Mandie l Result [facility] [address] [place] [phone] * Prothrombin Time-INR (07/08/2024 4:00 PM EST) Prothrombin Time 11.3 10.9 - 12.4 SEC [facility] INTERNATIONAL NORM RATIO 1.0 0.9 - 1.1 [facility] Comment:INTERNATIONAL NORMAL IZED RATIO (INR) REFERENCE [...] PM EST 07/08/2024 4:00 PM EST us Magy Watts [facility] LAB BLOOD ORDERABLES Mandie tavares Result [facility] [address] [place] [address] [phone] * (ABNORMAL) CBC (07/08/2024 4:00 PM EST) White Blood Count 7.2 4.8 - 10.8 X10*3/uL [facility] Red Blood Count 4.25 4.20 - 5.50 X10*6/uL [facility] Hemoglobin 10.7(L) 12.0 - 16.0 g/dl [facility] Hematocrit 33.7(L) 37.0 - 47.0 % [facility] Mean Corpuscular Volume 79.3(L) 80.0 - 98.0 fL [facility] Mean Corpuscular Hemoglobin 25.2(L) 27.0 - 33.0 pg [facility] Mean Corpuscular HGB Conc 31.8 31.0 - 35.0 g/dl [facility] Red Cell Distribution Width 15.1 11.0 - 16.0 % [facility] Platelet Count 320 160 - 400 X10*3/uL [facility] Mean Platelet Volume 11.2 9.4 - 12.3 fL [facility] NRBC Pct Auto 0.0 0.0 - 0.2 /100WBC [facility] NRBC Abs Auto 0.000 0.0 - 0.012 X10*3/uL [facility] Blood Venous blood specimen / Unknown 07/08/2024 4:00 PM EST 07/08/2024 4:00 PM EST us Magy Watts CNM LAB BLOOD ORDERABLES Mandie l Result [facility] [address] [place] [address] [phone] documented in this encounter Visit Diagnoses Diagnosis Abnormal uterine bleeding (AUB)- Primary documented in this encounter Additional Health Concerns Assessment Noted Time PHQ-9 Depression Total Score: 12 024 3:23 PM EDT documented as of this encounter Care Teams Manufacturing Maintenance Manager Relationship Specialty Start Date End Date Micaela Chaudhary NP [address] [place] [address] PCP - General Family Medicine 01/05/24 documented as of this encounter
--- OUTSIDE RECORDS SUMMARY | 2024-07-08 17:16 | XMS_ITS | Encounter Summary ---
Author Organization [employer] Address [address] [facility] [address] [place] [address] Care Team Providers Care Spring Manufacturing Set Up Technician Name Role Phone Micaeal Chaudhary PAYROLL MACHINE OPERATOR Primary Care Provider [phone] Micaela Chaudhary PAYROLL MACHINE OPERATOR Primary Care Provider [phone] Reason for Visit * Reason Onset Date Comments Med Refill 05/22/2023 Encounter Details Date Type Department Care Team (Late st Contact Info) Description 05/22/2023 Refill [facility] [place] 230 [place], [place] [phone] Name, MD Mendez [address] [place] [address] Abnormal uterine bleeding Social History Tobacco Use [...] Telephone Encounter - Micaela Chaudhary NP - 05/25/2023 10:40 AM EST Approving, but needs appt for additional refills. documented in this encounter Plan of Treatment Not on file documented as of this encounter Visit Diagnoses Diagnosis Abnormal uterine bleeding Unspecified disorder of menstruation and other abnormal bleeding from female genital tract documented in this encounter Additional Health Concerns Assessment Noted Time PHQ-9 Depression Total Score: 0 02/25/20 23 2:54 PM EDT documented as of this encounter Care Teams Spring Manufacturing Set Up Technician Relationship Specialty Start Date End Date Micaela Chaudhary NP [address] [place] [address] PCP - General Family Medicine 02/14/23 01/04/24 Micaela Chaudhary NP [address] [place] [address] PCP - General Family Medicine 01/05/24 documented as of this encounter
== END 2024-07-08 14:30 | disposition home or self-care (01) ==
LOC: HO.HHCL 14:29
PROVIDERS: Visit Provider Advanced Practice Midwife
DX: Z13.89 Encounter for screening for other disorder (principal)

== ENCOUNTER 2024-07-08 15:41 | Outpatient (REF) | payer MEDICAID, SELFPAY ==
[2024-07-08 16:41] LABS: Hematocrit 33.7 % (37.0-47.0); Hemoglobin 10.7 g/dl (12.0-16.0); Mean Corpuscular HGB Conc 31.8 g/dl (31.0-35.0); Mean Corpuscular Hemoglobin 25.2 pg (27.0-33.0); Mean Corpuscular Volume 79.3 fL (80.0-98.0); Mean Platelet Volume 11.2 fL (9.4-12.3); Platelet Count 320 X10*3/uL (160-400); Red Blood Count 4.25 X10*6/uL (4.20-5.50); Red Cell Distribution Width 15.1 % (11.0-16.0); White Blood Count 7.2 X10*3/uL (4.8-10.8)
[2024-07-08 16:46] LABS: Prothrombin Time 11.3 SEC (10.9-12.4)
[2024-07-08 17:37] LABS: HCG Quantitative < 2 mIU/mL; TSH reflex Free T4 0.75 uIU/mL (0.32-4.0)
--- OUTSIDE RECORDS SUMMARY | 2024-07-08 18:31 | XMS_ITS | Encounter Summary ---
Author Organization [employer] Address [address] [facility] [facility] [facility] [address] [place] [address] Care Team Providers Care Flat Knitter Name Role Phone Micaela Chaudhary AUTOMOBILE BODY REPAIRER HELPER Primary Care Provider [phone] Micaela Chaudhary AUTOMOBILE BODY REPAIRER HELPER Primary Care Provider [phone] Reason for Visit * Reason Onset Date Comments Med Refill 05/22/2023 Encounter Details Date Type Department Care Team (Late st Contact Info) Description 05/22/2023 Refill [facility] MEDICINE [address] [place] [address] Magy Watts, IDA [address] [place] [address] Social History Tobacco Use Types Packs/Day Years [...] documented as of this encounter Care Teams Flat Knitter Relationship Specialty Start Date End Date Micaela Chaudhary NP [address] [place] [address] PCP - General Family Medicine 02/14/23 01/04/24 Micaela Chaudhary NP [address] [place] [address] PCP - General Family Medicine 01/05/24 documented as of this encounter
--- OUTSIDE RECORDS SUMMARY | 2024-07-08 18:31 | XMS_ITS | Encounter Summary ---
Author Organization [employer] Address [address] [place] [address] Care Team Providers Care Ferry Hand Name Role Phone Micaela Chaudhary NP Primary Care Provider [phone] Encounter Details Date Type Department Care Team ([facility] st Contact Info) Description 07/08/2024 2:00 PM EST Office Visit [facility] [address] [place] [address] Magy Watts CNM [address] [place] [address] Abnormal uterine bleeding (AUB) (Primary Dx) Social [...] a 23 y.o. female who presents for TONAL REGULATOR visit Here with sons. Chronic AUB, now [...] If all labs normal/negative, will refer to TONAL REGULATOR for consideration of Endometrial biopsy. Other orders - Drospirenone (Slynd) 4 MG tablet; Take 1 tablet by mouth Once per day. documented in this encounter Plan of Treatment Scheduled Orders Name Type Priority Associated Diagnoses Orde r Schedule von Willebrand Antigen, Multimeric Lab Routine Abnormal uterine bleeding (AUB) Expected: 07/08/2024 (Approximate), Expires: 07/08/2025 documented as of this encounter Procedures Procedure Name Priority Date/Time Associated Diagnosis Comments TSH W/REFLEX TO FT4 Routine 07/08/2024 4 :00 PM EST Abnormal uterine bleeding (AUB) APTT Routine 07/08/2024 4:00 PM EST Abnormal uterine bleeding (AUB) PROTHROMBIN TIME-INR Routine 07/08/2024 4:00 PM EST Abnormal uterine bleeding (AUB) CBC Routine 07/08/2024 4:00 PM EST Abnormal uterine bleeding (AUB) HCG, TOTAL, QN Routine 07/08/2024 4:00 PM EST Abnormal uterine bleeding (AUB) documented in this encounter Results * Partial Thromboplastin Time, Activated (APTT) (07/08/2024 4:00 PM EST) Partial Thromboplastin Time 29.0 26.0 - 36.8 SEC [facility] Comment:For information rega rding the monitoring of direct thrombininhibitors, please refer to Pharmacy. Blood Venous blood specimen / Unknown 07/08/2024 4:00 PM EST 07/08/2024 4:00 PM EST us Magy Watts CNM LAB BLOOD ORDERABLES Mandie l Result [facility] [address] [place] [phone] * Prothrombin Time-INR (07/08/2024 4:00 PM EST) Prothrombin Time 11.3 10.9 - 12.4 [facility] INTERNATIONAL NORM RATIO 1.0 0.9 - 1.1 [facility] Comment:INTERNATIONAL NORMAL IZED RATIO (INR) [...] 4:00 PM EST 07/08/2024 4:00 PM EST Magy PRIETO LAB BLOOD ORDERABLES Mandie tavares Result [facility] [address] [place] [phone] * hCG, Total, Quantitative (07/08/2024 4:00 PM EST) HCG Quantitative <2 mIU/mL [facility] Comment:Weeks post LMP Appro ximate hCG(Last Menstrual Period) Range (mIU/ml)3 - 4 weeks 9 - 1304 - 5 weeks 75 - 2,6005 - 6 weeks 850 - 20,8006 - 7 weeks 4000 - 100,2007 - 12 weeks 11,500 - 289,64661 - 16 weeks 18,300 - 137,19097 - 29 weeks (2nd trimester) 1,400 - 53,94853 - 41 weeks (3rd trimester) 940 - 60,000The [place] B- hCG assay is used for the early detection ofpregnancy; it cannot be used to diagnose any conditionunrelated to . If a B-hCG level is not supportedby the clinical evidence, results should be confirmed by analternative method (qualitative urine hCG, for example). Blood Venous blood specimen / Unknown 07/08/2024 4:00 PM EST 07/08/2024 4:00 PM EST Magy PRIETO LAB BLOOD ORDERABLES Mandie l Result Performing Organization Address City/[facility]/ZIP Co de Phone Number [facility] [address] [place] [address] [phone] * (ABNORMAL) CBC (07/08/2024 4:00 PM EST) White Blood Count 7.2 4.8 - 10.8 X10*3/uL [facility] Red Blood Count 4.25 4.20 - 5.50 X10*6/uL [facility] Hemoglobin 10.7(L) 12.0 - 16.0 g/dl [facility] Hematocrit 33.7(L) 37.0 - 47.0 % [facility] Mean Corpuscular Volume 79.3(L) 80.0 - 98.0 fL [facility] Mean Corpuscular Hemoglobin 25.2(L) 27.0 - 33.0 pg [facility] Mean Corpuscular HGB Conc 31.8 31.0 - 35.0 g/dl [facility] Red Cell Distribution Width 15.1 11.0 - 16.0 % [facility] Platelet Count 320 160 - 400 X10*3/uL [facility] Mean Platelet Volume 11.2 9.4 - 12.3 fL [facility] NRBC Pct Auto 0.0 0.0 - 0.2 /100WBC [facility] NRBC Abs Auto 0.000 0.0 - 0.012 X10*3/uL [facility] Blood Venous blood specimen / Unknown 07/08/2024 4:00 PM EST 07/08/2024 4:00 PM EST us Magy Watts [facility] LAB BLOOD ORDERABLES Mandie l Result [facility] [address] [place] [address] [phone] * TSH W/Reflex to FT4 (07/08/2024 4:00 PM EST) Pathologist [facility] TSH reflex Free T4 0.75 0.32 - 4.0 uIU/mL [facility] Blood Venous blood specimen / Unknown 07/08/2024 4:00 PM EST 07/08/2024 4:00 PM EST us Magy Watts CNM LAB BLOOD ORDERABLES Mandie l Result [facility] [address] [place] [address] [phone] documented in this encounter Visit Diagnoses Diagnosis Abnormal uterine bleeding (AUB)- Primary documented in this encounter Additional Health Concerns Assessment Noted Time PHQ-9 Depression Total Score: 12 03/08/ 024 3:23 PM EDT documented as of this encounter Care Teams Ferry Hand Relationship Specialty Start Date End Date Micaela Chaudhary NP [address] [place] [phone] PCP - General Family Medicine 01/05/24 documented as of this encounter
--- OUTSIDE RECORDS SUMMARY | 2024-07-08 18:31 | XMS_ITS | Encounter Summary ---
Author Organization [employer] Address [address] [place] [address] Care Team Providers Care Press Brake Operator Name Role Phone Micaela Chaudhary NP Primary Care Provider [phone] Reason for Visit * Reason Onset Date Comments No Show 07/03/2024 Encounter Details Date Type Department Care Team ([facility] st Contact Info) Description 07/03/2024 Telephone [facility] [address] [place] [address] Micaela Chaudhary NP [address] [place] [address] No Show Social History Tobacco Use Types [...] the past 12 months, has t he [employer], gas, oil or water [employer] threatened to shut off services in your [...] x 2 placed to pt via S word processor technician (Fernanda ID#[id number]) regarding missed sick on site with PCP. Ptstates she did not want the appointment with Micaela and wanted to see Magy. Pt appointment was supposed to be cancelled for 07/03/24 with Micaela as she is being seen by Magy [...] documented as of this encounter Care Teams Press Brake Operator Relationship Specialty Start Date End Date Micaela Chaudhary NP [address] [place] [address] PCP - General Family Medicine 01/05/24 documented as of this encounter
--- OUTSIDE RECORDS SUMMARY | 2024-07-08 18:31 | XMS_ITS | Encounter Summary ---
Author Organization [employer] Address [address] [place] [address] Care Team Providers Care Guest History Clerk Name Role Phone Westnicky Micaela CARR Primary Care Provider [phone] Reason for Visit * Reason Comments Med Refill Encounter Details Date Type Department Care Team ([facility] st Contact Info) Description 03/07/[address] [facility] [address] [place] [address] Kat Coley MD [address] [place] [address] Social History Tobacco Use Types Packs/Day Years [...] documented as of this encounter Care Teams Guest History Clerk Relationship Specialty Start Date End Date Micaela Chaudhary NP [address] [place] [phone] PCP - General Family Medicine 01/05/24 documented as of this encounter
--- OUTSIDE RECORDS SUMMARY | 2024-07-08 18:31 | XMS_ITS | Clinical Summary ---
Author Organization [employer] Address [address] [place] [address] Care Team Providers Care Audio Visual Specialist Name Role Phone Micaela Chaudhary NP Primary Care Provider [phone] Allergies No known active allergies Medications acetaminophen [...] & Plan (12/21/2023 1:01 PM EDT): Per Magy Padgett at her last apt in 03/2023 [...] and gave phone # to pt of [facility] radiologist dep as well to schedule apt [...] abnormal bowel movements. She requested referral to SENIOR BRANCH MANAGER, requested [place] to make appt with CNM. [...] Office Visit [facility] [address] [place] [address] Magy Wong CNM Abnormal uterine bleeding (AUB) (Primary Dx) 07/08/2024 Travel 07/03/2024 Telephone [facility] [address] [place] [address] Micaela Chaudhary NP No Show 06/28/2024 Telephone [facility] [address] [place] [address] Micaela Chaudhary NP Nurse Triage 04/09/2024 Telephone [facility] [address] [place] [address] Magy Wong CNM No Show from Last 3 [...] 4:00 PM EST Abnormal uterine bleeding (AUB) TSH W/REFLEX TO FT4 Routine 07/08/2024 4 :00 PM EST Abnormal uterine bleeding (AUB) HEPATITIS [...] Recently Relevant to Health Maintenance Results * TSH W/Reflex to FT4 (07/08/2024 4:00 PM EST) TSH reflex Free T4 0.75 0.32 - 4.0 uIU/mL [facility] Blood Venous blood specimen / Unknown 07/08/2024 4:00 PM EST 07/08/2024 4:00 PM EST us Magy Wong CNM LAB BLOOD ORDERABLES Mandie tavares Result [facility] [address] [place] [phone] * Partial Thromboplastin Time, Activated (APTT) (07/08/2024 4:00 PM EST) Partial Thromboplastin Time 29.0 26.0 - 36.8 SEC [facility] Comment:For information rega rding the monitoring of direct thrombininhibitors, please refer to Pharmacy. Blood Venous blood specimen / Unknown 07/08/2024 4:00 PM EST 07/08/2024 4:00 PM EST [facility] LAB BLOOD ORDERABLES Mandie l Result Performing Organization Address City/[facility]/ZIP Co de Phone Number [facility] [address] [place] [address] [phone] * Prothrombin Time-INR (07/08/2024 4:00 PM EST) Prothrombin Time 11.3 10.9 - 12.4 SEC [facility] INTERNATIONAL NORM RATIO 1.0 0.9 - 1.1 [facility] Comment:INTERNATIONAL NORMAL IZED RATIO (INR) [...] 4:00 PM EST 07/08/2024 4:00 PM EST [facility] LAB BLOOD ORDERABLES Mandie l Result [facility] [address] [place] [address] [phone] * (ABNORMAL) CBC (07/08/2024 4:00 PM EST) White Blood Count 7.2 4.8 - 10.8 X10*3/uL [facility] Red Blood Count 4.25 4.20 - 5.50 X10*6/uL [facility] Hemoglobin 10.7(L) 12.0 - 16.0 g/dl [facility] Hematocrit 33.7(L) 37.0 - 47.0 % [facility] Mean Corpuscular Volume 79.3(L) 80.0 - 98.0 fL [facility] Mean Corpuscular Hemoglobin 25.2(L) 27.0 - 33.0 pg [facility] Mean Corpuscular HGB Conc 31.8 31.0 - 35.0 g/dl [facility] Red Cell Distribution Width 15.1 11.0 - 16.0 % [facility] Platelet Count 320 160 - 400 X10*3/uL [facility] Mean Platelet Volume 11.2 9.4 - 12.3 fL [facility] NRBC Pct Auto 0.0 0.0 - 0.2 /100WBC [facility] NRBC Abs Auto 0.000 0.0 - 0.012 X10*3/uL [facility] Blood Venous blood specimen / Unknown 07/08/2024 4:00 PM EST 07/08/2024 4:00 PM EST us Magy Wong [facility] LAB BLOOD ORDERABLES Mandie l Result [facility] [address] [place] [phone] * hCG, Total, Quantitative (07/08/2024 4:00 PM EST) HCG Quantitative <2 mIU/mL [facility] Comment:Weeks post LMP Appro ximate hCG(Last Menstrual Period) Range (mIU/ml)3 - 4 weeks 9 - 1304 - 5 weeks 75 - 2,6005 - 6 weeks 850 - 20,8006 - 7 weeks 4000 - 100,2007 - 12 weeks 11,500 - 289,06641 - 16 weeks 18,300 - 137,60591 - 29 weeks (2nd trimester) 1,400 - 53,05672 - 41 weeks (3rd trimester) 940 - [...] PM EST 07/08/2024 4:00 PM EST Magy Wong [facility] LAB BLOOD ORDERABLES Mandie l Result Performing Organization Address [facility]/ZIP Co de Phone Number [facility] [address] [place] [phone] * Hepatitis C Antibody with Reflex to HCV, RNA, Quantitative, Real-Time PCR (03/13/2024 10:25 AM EST) Hepatitis C Antibody Nonreactive Nonreactive [facility] Comment:Antibodies to HCV no t detected; does not exclude early acuteHCV infection. Blood Venous blood specimen / Unknown 03/13/2024 10:25 AM EST 03/13/2024 11:35 AM EST us Zeina Sue [facility] LAB BLOOD ORDERABLES Final Res ult Performing Organization Address [facility] Co de Phone Number [facility] [address] [place] [phone] * HIV-1/2 Antigen and Antibodies, Fourth Generation, with Reflexes (03/13/2024 10:25 AM EST) HIV AB/AG Nonreactive Nonreactive [facility] Comment:HIV-1 p24 Ag and/or HIV-1/HIV-2 Ab not detected.A test result that is nonreactive does not exclude thepossibility of exposure to or infection with HIV-1 and/orHIV-2. Nonreactive results in this assay for individualswith prior exposure to HIV-1 and/or HIV-2 may be due toantigen and antibody levels that are below the limit ofdetection of this assay.The [employer] HIV Ag/Ab Combo assay result andsupplemental assay results should be interpreted inconjunction with the patient's clinical presentation,history and other laboratory results. If the results areinconsistent with clinical evidence, additional testing issuggested to confirm the result. Blood Venous blood specimen / Unknown 03/13/2024 10:25 AM EST 03/13/2024 11:35 AM EST Zeina GARCIA LAB BLOOD ORDERABLES Final Res ult [facility] [address] [place] [phone] * Pap Smear (03/13/2024 10:25 AM EST) Swab Cervix uteri structure / Unknown 03/13/2024 10:25 AM EST 03/14/2024 8:45 AM EST Narrative [facility] - 03/19/2024 10:32 AM EST ----- ------- Name: Jessica Jarrell ? Age/Sex: 23/F ? : 2000 Unit#: [id number] ?? Attend Dr: Zeina Seu ?Re03/13/24 ?Status: DEP REF ? Location: [facility] ? Disch: ? ----- ------- SPEC : [id number] ?RECD: 03/14/24 ? STATUS: ??SOUT ? REQ NUM: [id number] ? AVRIL: 03/13/24 ? SUBM DR: MAGY WONG CNM ? ENTERED: ??03/14/24 ?SP TYPE: [...] ------- ? END OF REPORT ? us Magy Wong [facility] CYTOLOGY ORDERABLES F inal Result [facility] [address] [place] [address] [phone] from Last 3 Months or Most Recently Relevant to Health Maintenance Insurance [facility] [address], [place] [address] [place] Care Teams Audio Visual Specialist Relationship Specialty Start Date End Date Micaela Chaudhary NP [address] [place] [phone] PCP - General Family Medicine 01/05/24
--- OUTSIDE RECORDS SUMMARY | 2024-07-08 18:31 | XMS_ITS | Encounter Summary ---
Author Organization [employer] Address [address] 7t [place] [address] Care Team Providers Care Turbine Subassembler Name Role Phone Micaela Chaudhary NP Primary Care Provider [phone] Reason for Visit * Reason Onset Date Comments Med Refill 02/01/2024 Encounter Details Date Type Department Care Team (Late st Contact Info) Description 02/01/2024 Refill [facility] [address] [place] [address] Micaela Chaudhary NP [address] [place] [address] Abnormal uterine bleeding Social History Tobacco Use [...] documented as of this encounter Care Teams Turbine Subassembler Relationship Specialty Start Date End Date Micaela Chaudhary NP [address] [place] [phone] PCP - General Family Medicine 01/05/24 documented as of this encounter
--- OUTSIDE RECORDS SUMMARY | 2024-07-08 18:31 | XMS_ITS | Encounter Summary ---
Author Organization [email or web address] Address [address] [place] [address] Care Team Providers Care Rat Poisoner Name Role Phone Neena Micaela CARR Primary Care Provider [phone] Reason for Visit * Reason Onset Date Comments Med Refill 02/01/2024 Encounter Details Date Type Department Care Team (Late st Contact Info) Description 02/01/2024 Refill [facility] [address] [place] [address] Kat Coley MD [address] [place] [address] Social History Tobacco Use Types Packs/Day Years [...] documented as of this encounter Care Teams Rat Poisoner Relationship Specialty Start Date End Date Micaela Chaudhary NP [address] [place] [address] PCP - General Family Medicine 01/05/24 documented as of this encounter
--- OUTSIDE RECORDS SUMMARY | 2024-07-08 18:31 | XMS_ITS | Encounter Summary ---
Author Organization [employer] Address [address] [address] Care Team Providers Care Credit Union Examiner Name Role Phone Lynette Cooper Primary Care Provider [phone] AppramMicaela POST OFFICE MANAGER Primary Care Provider [phone] [employer], Micaela POST OFFICE MANAGER Primary Care Provider [phone] Encounter Details Date Type Department Care Team (Late st Contact Info) Description 05/20/[address] [facility] [address] [place] [address] Lynette Cooper FNP [address] [place] [address] Dept [place] [address] Social History Tobacco Use Types Packs/Day Years [...] on filedocumented in this encounter Care Teams Credit Union Examiner Relationship Specialty Start Date End Date Lynette Cooper FNP PCP - General Family Medicine 09/24/21 02/13/23 Micaela Chaudhary NP [address] [place] [address] PCP - General Family Medicine 02/14/23 01/04/24 Micaela Chaudhary NP [address] [place] [address] PCP - General Family Medicine 01/05/24 documented as of this encounter
--- OUTSIDE RECORDS SUMMARY | 2024-07-08 18:31 | XMS_ITS | Encounter Summary ---
Author Organization [employer] Address [address] [facility] [address] [facility] [place] [address] Care Team Providers Care Home Visits Nurse Name Role Phone Micaela Chaudhary NP Primary Care Provider [phone] Reason for Visit * Reason Onset Date Comments Med Refill 02/01/2024 Encounter Details Date Type Department Care Team (Late st Contact Info) Description 02/01/2024 Refill [facility] [address] [place] [address] Micaela Chaudhary NP [address] [place] [address] Social History Tobacco Use Types Packs/Day Years [...] documented as of this encounter Care Teams Home Visits Nurse Relationship Specialty Start Date End Date Micaela Chaudhary NP [address] [place] [address] PCP - General Family Medicine 01/05/24 documented as of this encounter
--- OUTSIDE RECORDS SUMMARY | 2024-07-08 18:31 | XMS_ITS | Encounter Summary ---
Author Organization [employer] Address [address] [place] [address] Care Team Providers Care Tennis Centre Manager Name Role Phone WestMicaela saunders BRUNO Primary Care Provider [phone] Encounter Details Date Type Department Care Team [...] documented as of this encounter Care Teams Tennis Centre Manager Relationship Specialty Start Date End Date Micaela Chaudhary NP [address] [place] [address] PCP - General Family Medicine 01/05/24 documented as of this encounter
--- OUTSIDE RECORDS SUMMARY | 2024-07-08 18:31 | XMS_ITS | Encounter Summary ---
Author Organization [employer] Address [address] [facility] [address] [place] [address] Care Team Providers Care Inspector Type Name Role Phone Micaela Chaudhary CURTAIN STITCHER Primary Care Provider [phone] Micaela Chaudhary CURTAIN STITCHER Primary Care Provider [phone] Reason for Visit * Reason Onset Date Comments Med Refill 05/22/2023 Encounter Details Date Type Department Care Team (Late st Contact Info) Description 05/22/2023 Refill [facility] [address] [place], [place] [phone] Name, MD Mendez [address] [place] [address] Abnormal uterine bleeding Social History Tobacco Use [...] documented as of this encounter Care Teams Inspector Type Relationship Specialty Start Date End Date Micaela Chaudhary NP [address] [place] [address] PCP - General Family Medicine 02/14/23 01/04/24 Micaela Chaudhary NP [address] [place] [address] PCP - General Family Medicine 01/05/24 documented as of this encounter
--- OUTSIDE RECORDS SUMMARY | 2024-07-08 18:31 | XMS_ITS | Encounter Summary ---
Author Organization [employer] Address [address] [place] [address] Care Team Providers Care Survey Research Associate Name Role Phone Lynette Cooper Primary Care Provider [phone] AppramMicaela SENIOR CONSTRUCTION PROJECT MANAGER Primary Care Provider [phone] AppramMicaela SENIOR CONSTRUCTION PROJECT MANAGER Primary Care Provider [phone] Reason for Visit * Reason Onset Date Comments US results 06/14/2022 Encounter Details Date Type Department Care Team (Late st Contact Info) Description 06/14/2022 Telephone [facility] [address] [place] [address] Lynette Cooper FNP [address] [facility] Dept [place] [address] US results Social History Tobacco Use Types [...] on filedocumented in this encounter Care Teams Survey Research Associate Relationship Specialty Start Date End Date Lynette Cooper FNP PCP - General Family Medicine 09/24/21 02/13/23 Micaela Chaudhary NP [address] [place] [address] PCP - General Family Medicine 02/14/23 01/04/24 Micaela Chaudhary NP [address] [place] [address] PCP - General Family Medicine 01/05/24 documented as of this encounter
--- OUTSIDE RECORDS SUMMARY | 2024-07-08 18:31 | XMS_ITS | Encounter Summary ---
Author Organization [employer] Address [address] [place] [address] Care Team Providers Care Gearcase Assembler Name Role Phone Lynette Cooper Primary Care Provider [phone] AppramMicaela GUEST SERVICES Primary Care Provider [phone] AppramMicaela GUEST SERVICES Primary Care Provider [phone] Reason for Visit * Reason Onset Date Comments Appointment Request 10/31/2022 Encounter Details Date Type Department Care Team (Late st Contact Info) Description 10/31/2022 Telephone [facility] [address] [place] [address] Lynette Cooper FNP [address] [place] [address] Dept [place] [address] Appointment Request Social History Tobacco Use Types [...] Dr. Watts on 10/31/22. Patient went to [facility] and was unaware it was at [facility]. Details: F/U: heavy vaginal bleeding documented in this encounter Plan of Treatment Not on file documented as of this encounter Visit Diagnoses Not on filedocumented in this encounter Care Teams Gearcase Assembler Relationship Specialty Start Date End Date Lynette Cooper FNP PCP - General Family Medicine 09/24/21 02/13/23 Micaela Chaudhary NP [address] [place] [address] PCP - General Family Medicine 02/14/23 01/04/24 Micaela Chaudhary NP [address] [place] [address] PCP - General Family Medicine 01/05/24 documented as of this encounter
--- OUTSIDE RECORDS SUMMARY | 2024-07-08 18:31 | XMS_ITS | Encounter Summary ---
Author Organization [employer] Address [address] [facility] [address] 7[address] [place] [address] Care Team Providers Care Social Work Supervisor Name Role Phone Micaela Chaudhary NP Primary Care Provider [phone] Micaela Chaudhary NP Primary Care Provider [phone] Reason for Visit * Reason Onset Date Comments Med Refill 09/23/2023 Encounter Details Date Type Department Care Team (Late st Contact Info) Description 09/23/2023 Refill [facility] [address] [place] [address] Micaela Chaudhary NP [address] [place] [address] Abnormal uterine bleeding Social History Tobacco Use [...] documented as of this encounter Care Teams Social Work Supervisor Relationship Specialty Start Date End Date Micaela Chaudhary NP [address] [place] [address] PCP - General Family Medicine 02/14/23 01/04/24 Micaela Chaudhary NP [address] [place] [address] PCP - General Family Medicine 01/05/24 documented as of this encounter
--- OUTSIDE RECORDS SUMMARY | 2024-07-08 18:31 | XMS_ITS | Encounter Summary ---
Author Organization [employer] Address [address] [facility] [address] 7[address] [place] [address] Care Team Providers Care Mall Manager Name Role Phone Lynette Cooper INSPECTOR RECEIVING Primary Care Provider [phone] AppramMicaela BALING PRESS OPERATOR Primary Care Provider [phone] Appram, Micaela BALING PRESS OPERATOR Primary Care Provider [phone] Encounter Details Date Type Department Care Team (Late st Contact Info) Description 05/25/2022 Orders Only [facility] [address] [place] [address] Magy Watts, MARY [address] [place] [address] Social History Tobacco Use Types Packs/Day Years [...] pap, repeat in 1 year Magy Watts [facility] CYTOLOGY ORDERABLES E dited Result - Final [facility] [address] [facility], [facility], [place] [address] documented in this encounter Visit Diagnoses Not on filedocumented in this encounter Care Teams Mall Manager Relationship Specialty Start Date End Date Lynette Cooper FNP PCP - General Family Medicine 09/24/21 02/13/23 Micaela Chaudhary NP [address] [place] [address] PCP - General Family Medicine 02/14/23 01/04/24 Micaela Chaudhary NP [address] [place] [address] PCP - General Family Medicine 01/05/24 documented as of this encounter
--- OUTSIDE RECORDS SUMMARY | 2024-07-08 18:31 | XMS_ITS | Encounter Summary ---
Author Organization [employer] Address [address] [facility] [address] 7[address] [place] [address] Care Team Providers Care Drama Director Name Role Phone Lynette Cooper Sarai BARREL INSPECTOR Primary Care Provider [phone] AppraMicaela saunders NP Primary Care Provider [phone] Micaela Chaudhary AIRCRAFT LOAD CONTROLLER Primary Care Provider [phone] Reason for Visit * Reason Onset Date Comments Med Refill 10/24/2022 Encounter Details Date Type Department Care Team (Late st Contact Info) Description 10/24/2022 Refill [facility] [address] [place] [address] Magy Watts CNM [address] [place] [address] Abnormal uterine bleeding Social History Tobacco Use [...] her the number for centralized scheduling via Deem text. Scheduled F/U with Magy for 10/31 [...] tract documented in this encounter Care Teams Drama Director Relationship Specialty Start Date End Date Lynette Cooper FNP PCP - General Family Medicine 09/24/21 02/13/23 Micaela Chaudhary NP 230 [place] [address] PCP - General Family Medicine 02/14/23 01/04/24 Micaela Chaudhary NP [address] [place] [address] PCP - General Family Medicine 01/05/24 documented as of this encounter
--- OUTSIDE RECORDS SUMMARY | 2024-07-08 18:31 | XMS_ITS | Encounter Summary ---
Author Organization [employer] Address [address] [facility] [address] 7[address] [place] [address] Care Team Providers Care Cigar Head Puncher Name Role Phone Micaela Chaudhary MATERIALS ASSISTANT Primary Care Provider [phone] Micaela Chaudhary MATERIALS ASSISTANT Primary Care Provider [phone] Reason for Visit * Reason Onset Date Comments Med Refill 04/06/2023 Encounter Details Date Type Department Care Team (Late st Contact Info) Description 04/06/2023 Refill [facility] [address] [place] [address] Magy Watts, IDA 230 [place] [address] Abnormal uterine bleeding Social History Tobacco Use [...] documented as of this encounter Care Teams Cigar Head Puncher Relationship Specialty Start Date End Date Micaela Chaudhary NP 230 [place] [address] PCP - General Family Medicine 02/14/23 01/04/24 Micaela Chaudhary NP 230 [place] [address] PCP - General Family Medicine 01/05/24 documented as of this encounter
--- OUTSIDE RECORDS SUMMARY | 2024-07-08 18:31 | XMS_ITS | Encounter Summary ---
Author Organization [email or web address] Address [address] [facility] [address] 7[address] [place] [address] Care Team Providers Care Painter And Decorator Apprentice Name Role Phone Micaela Chaudhary NP Primary Care Provider [phone] Reason for Visit * Reason Onset Date Comments Nurse Triage 06/28/2024 Encounter Details Date Type Department Care Team (Late st Contact Info) Description 06/28/[address] [facility] [address] [place] [address] Micaela Chaudhary NP 230 [place] [address] Nurse Triage Social History Tobacco Use Types [...] the past 12 months, has t he [place], gas, oil or water Personal [employer] threatened to shut off services in your [...] acuity questions The caller accepted this outcome. [phone] *denied triage documented in this encounter Plan of Treatment Not on file documented as of this encounter Visit Diagnoses Not on filedocumented in this encounter Additional Health Concerns Assessment Noted Time PHQ-9 Depression Total Score: 12 024 3:23 PM EDT documented as of this encounter Care Teams Painter And Decorator Apprentice Relationship Specialty Start Date End Date Micaela Chaudhary NP [address] [place] [address] PCP - General Family Medicine 01/05/24 documented as of this encounter
== END 2024-07-08 15:42 | disposition home or self-care (01) ==
LOC: HO.LAB 15:41
PROVIDERS: PCP Student in an Organized Health Care Education/Training Program; Visit Provider Advanced Practice Midwife
DX: N93.9 Abnormal uterine and vaginal bleeding, unspecified (principal)
CPT/HCPCS: 36415; 84443; 84702; 85027; 85247; 85610; 85730

== ENCOUNTER 2024-12-14 14:13 | Outpatient (REF) | payer MEDICAID, SELFPAY ==
--- OUTSIDE RECORDS SUMMARY | 2024-12-14 14:16 | XMS_ITS | Encounter Summary ---
Author Organization [employer] Address [address] [facility] [address] 7[address] [place] [address] Care Team Providers Care School Cafeteria Head Cook Name Role Phone KennethLynette damon Sarai FUR STRETCHER Primary Care Provider Amy vailable Micaela Chaudhary BUSINESS OWNER/ENGINEER Primary Care Provider [phone] Micaela Chaudhary BUSINESS OWNER/ENGINEER Primary Care Provider [phone] Encounter Details Date Type Department Care Team (Late st Contact Info) Description 05/25/2022 Orders Only [facility] MED & PEDS [address] [place] [address] Magy Watts, MARY [address] [place] [address] Social History Tobacco Use Types Packs/Day Years [...] pap, repeat in 1 year Magy Watts [facility] CYTOLOGY ORDERABLES E dited Result - Final [facility] [address], [place] [address] documented in this encounter Visit Diagnoses Not on filedocumented in this encounter Care Teams School Cafeteria Head Cook Relationship Specialty Start Date End Date Lynette Cooper FNP PCP - General Family Medicine 09/24/21 02/13/23 Micaela Chaudhary NP [address] [place] [address] PCP - General Family Medicine 02/14/23 01/04/24 Micaela Chaudhary NP 230 [place] [address] PCP - General Family Medicine 01/05/24 documented as of this encounter
[2024-12-14 15:22] LABS: Bacterial Vaginosis PCR POSITIVE (Negative); Candida Group PCR NOT DETECTED (Not Detect); Candida glab krusei PCR NOT DETECTED (Not Detect); Trichomonas vaginalis PCR NOT DETECTED (Not Detect)
== END 2024-12-14 14:14 | disposition home or self-care (01) ==
LOC: HO.HHCLNP 14:13
PROVIDERS: Visit Provider Internal Medicine
DX: N89.8 Other specified noninflammatory disorders of vagina (principal); R10.30 Lower abdominal pain, unspecified
CPT/HCPCS: 81515; 87086

== ENCOUNTER 2025-01-17 15:56 | Outpatient (REF) | payer MEDICAID, SELFPAY ==
--- OUTSIDE RECORDS SUMMARY | 2025-01-17 13:40 | XMS_ITS | Encounter Summary ---
Author Organization [employer] Address [address] [facility] [address] 7[address] [place] [address] Care Team Providers Care Diesel Pile Hammer Operator Name Role Phone Micaela Chaudhary NP Primary Care Provider [phone] Reason for Visit * Reason Comments Abdominal Pain Encounter Details Date Type Department Care Team ([facility] st Contact Info) Description 01/17/2025 1:40 PM EDT Office Visit [facility] [place] 230 [place] [address] Acute vaginitis (Primary Dx) Social History Tobacco Use Types [...] Sign Reading Time Taken Comments Blood Pressure 105/66 01/17/2025 1:26 PM EDT Pulse 68 01/17/2025 1:26 PM EDT Temperature 36.7 C (98.1 F) 01/17/2025 1:26 PM EDT Respiratory Rate 18 01/17/2025 1:26 PM EDT Oxygen Saturation 98% 01/17/2025 1:26 PM EDT Inhaled Oxygen Concentration - - Weight 57.5 kg (126 lb 12.8 oz) 01/17/2025 1:26 PM EDT Height - - Body Mass Index 21.77 12/14/2024 10:18 AM EDT documented in this encounter Plan of Treatment Upcoming Encounters Date Type Department Care Team (Late st Contact Info) Description 03/13/2025 9:30 AM EST Procedure Visit [facility] [address] [place] [address] Magy Watts CNM [address] [place] [address] Scheduled Orders Name Type Priority Associated Diagnoses Orde r Schedule Bacterial Vaginosis Panel Microbiology Routine Acute vaginitis Ordered: 01/17/2025 documented as of this encounter Visit Diagnoses Diagnosis Acute vaginitis- Primary Unspecified vaginitis and vulvovaginitis documented in this encounter Additional Health Concerns Assessment Noted Time PHQ-9 Depression Total Score: 12 024 3:23 PM EDT documented as of this encounter Care Teams Diesel Pile Hammer Operator Relationship Specialty Start Date End Date Micaela Chaudhary NP [address] [place] [address] PCP - General Family Medicine 01/05/24 documented as of this encounter
--- OUTSIDE RECORDS SUMMARY | 2025-01-17 17:48 | XMS_ITS | Clinical Summary ---
Author Organization [employer] Address [address] [facility] 7t [place] [address] Care Team Providers Care Spa Manager Name Role Phone Micaela Chaudhary NP Primary Care Provider [phone] Allergies No known active allergies Medications acetaminophen (Tylenol Extra Strength) 500 MG tablet Take during menses, do not take more than 1000mg in 24h. May take with food. 21 tablet 09/25/19 24 Active docusate sodium (Colace) 100 MG capsule Take 1 tab po bid prn constipation 60 capsule 2 12/21/19 24 Active metroNIDAZOLE (Metrogel) 0.75 % vaginal gelIndications :Acute vaginitis 1 applicator two times weekly x 12 week. Start after completion of oral medication 70 g 03/13/20 24 Active folic acid (Folvite) 800 MCG tablet Take 1 tablet (0.8 mg) by mouth Once per day. 30 tablet 11 03/13/20 24 025 Active Drospirenone (Slynd) 4 MG tablet Take 1 tablet by mouth Once per day. 28 tablet 11 07/09/19 25 Active ibuprofen 800 MG tabletIndicati ons:Abnormal uterine bleeding TAKE 1 TABLET BY MOUTH EVERY 8 HOURS WITH FOOD FOR 7 DAYS FOR MENSTRUAL BLEEDING 21 tablet 12/07/19 25 Active Ferrous Sulfate (iron) 325 (65 Fe) MG tablet TAKE 1 TABLET BY MOUTH EVERY OTHER DAY 45 tablet 12/25/19 25 Active fluconazole (Diflucan) 150 MG tabletIndicati ons:Acute vaginitis Take 1 tablet by oral route. Repeat in 72 hours. 2 tablet 01/18/20 25 Active Ferrous Sulfate (iron) 325 (65 Fe) MG tablet TAKE 1 TABLET BY MOUTH EVERY OTHER DAY 30 tablet 1 10/02/19 25 025 Discontinued metroNIDAZOLE (Flagyl) 500 MG tabletIndicati ons:Vaginal discharge Take 1 tablet (500 mg) by mouth 2 times daily for 7 days. 14 tablet 12/15/19 25 025 Active Problems Problem Noted Date Diagnosed Date Lower abdominal pain 12/14/2024 Assessment & Plan (12/14/2024 11:20 AM EDT): UA and culture ordered, patient will be contacted with results Screening examination for venereal disease 03/13 Assessment [...] and gave phone # to pt of [facility] radiologist dep as well to schedule apt [...] tomorrow Viral upper respiratory tract infection 03/01/20 23 Overview (03/01/2023): -most likley cause of lightheadedness [...] place Vaginal discharge 02/12/2023 Assessment & Plan (12/14/2024 11:20 AM EDT): I will treat her empirically for BV, BV panel ordered she will be contacted with results Assessment & Plan (03/13/2024 1:14 PM EST): Vaginal discharge with odor Plan Fern test Screening for veneral disease Assessment & Plan (02/12/2023 11:35 PM EDT): + for gardnerella 10/2022 +Savana and 06/2022 +Savana and + gardnerella ,10/2021 Chlamydia Requested today to [facility]DIEL preg test -unfortunately No preg test done [...] abnormal bowel movements. She requested referral to [facility], requested [place] to make appt with MARY. Anemia 07/14/2021 Assessment & Plan (03/01/2023 10:52 [...] Encounters Date Type Department Care Team Description 01/17/2025 1:40 PM EDT Office Visit [facility] [address] [address] Acute vaginitis (Primary Dx) 01/17/[address] [address] Micaela Chaudhary NP Lab Orders 01/17/2025 Travel 01/09/[address] [address] Micaela Chaudhary NP Medication Question 01/08/2025 Telephone [facility] [address] [address] Kathie Pickett [place] 12/24/2024 Orders Only [facility] [address] [place] [address] Joaquin Wong CNM Other iron deficiency anemia (Primary Dx) 12/23/2024 Telephone [facility] [address] [address] Kathie Pickett [place] 12/23/2024 Telephone [facility] [address] [address] Kathie Pickett [place] 12/23/[address] [address] Joaquin Wong CNM Med Refill 12/14/2024 10:40 AM EDT Office Visit [facility] [address] [place] [address] Kat Mcnair MD Lower abdominal pain (Primary Dx); Vaginal discharge 12/14/2024 Orders Only [facility] [address] [place] [address] Kat Mcnair MD 12/14/2024 Travel 12/05/2024 Refill [facility] [address] [place] [address] Micaela Chaudhary NP Abnormal uterine bleeding from Last 3 Months Immunizations Immunization Administration Dates Next Due Pfizer Covid-19 Vaccine [...] Q2 Not on file 03/01/2024 Comments No Intention Date Recorded No desire to become (finding) 0 09/17/2024 Sex and Gender Information Value Date Recorded [...] 12.8 oz) 01/17/2025 1:26 PM EDT Height 162.6 cm (5' 4 ) 12/14/2024 10:1 8 AM EDT Body Mass Index 21.77 12/14/2024 10:18 AM EDT Plan of Treatment Upcoming Encounters Date Type Department Care Team (Late st Contact Info) Description 03/13/2025 9:30 AM EST Procedure Visit [facility] [address] [place] [address] Joaquin Wong CNM [address] [place] [address] Health Maintenance Due Date Last Done Comments Disability Screening 2000 Dental Oral Exam 08/11/2011 02/08/2011 Dental Prophylaxis 08/11/2011 02/08/2011, 02/08/2011 Dental X-Ray: Bitewings 08/09/2012 08/09/2011, 02/08 HPV Vaccines (1 - 3-dose series) 2013 Dental X-Ray: Full Mouth 02/09/2014 02/08/2011 Hepatitis B Vaccines (1 of 3 - 19+ 3-dose series) 2017 Depression Monitoring 09/05/2024 03/08/2024, 024 COVID-19 Vaccine (3 - season) 2025 04/21/2021, 03/31/2021 SDOH Screening 03/01/2025 03/01/2024 Alcohol/Substance Use Screening 03/08/2025 03/08/2024 Pap Smear 03/13/2025 03/13/2024, 05/08, 05/17/2022 Family Planning (PISQ) 09/17/2025 09/17/2024 Tobacco Screening 09/17/2025 09/17/2024 DTaP/Tdap/Td Vaccines (2 - Td or Tdap) 02/14/2032 02/13/2022 Zoster Vaccines (1 of 2) 2048 RSV Patients and Patients Aged 60 years or older (1 - 1-dose 75+ series) 2073 HIV Screening Completed 07/19/2024, 10/2023, 03/16/2023, Additional history exists Hepatitis C Screening Completed 07/19/2024 , 03/13/2024, 09/24/2021 Influenza Vaccine Completed 01/15/2025 HIB Vaccines Aged Out No longer eligi ble based on patient's age to complete this topic Hepatitis A Vaccines Aged Out No long er eligible based on patient's age to complete this topic IPV Vaccines Aged Out No longer eligi ble based on patient's age to complete this topic Meningococcal B Vaccine Aged Out No l onger eligible based on patient's age to complete this topic Meningococcal Vaccine Aged Out No viviana byron eligible based on patient's age to complete this topic Pneumococcal Vaccine: Pediatrics (0 to 5 Years) and At-Risk Patients (6 to 49) Years Aged Out No longer eligible based on patient's age to complete this topic RSV under 20 months Aged Out No longe r eligible based on patient's age to complete this topic Rotavirus Vaccines Aged Out No longer eligible based on patient's age to complete this topic Procedures Procedure Name Priority Date/Time Associated Diagnosis Comments POCT URINALYSIS DIPSTICK Routine 12/14/2024 11:19 AM EDT Lower abdominal pain CULTURE, URINE, ROUTINE Routine 12/14/2024 11:06 AM EDT BACTERIAL VAGINOSIS PANEL Routine 12/14/2024 10:41 AM EDT Vaginal discharge HEPATITIS C ANTIBODY ([place] DPH) Routine 07/19/2024 HIV ANTIBODY/ANTIGEN ([place] DPH) Routine 07/19/2024 PAP SMEAR Routine 03/13/2024 10:25 AM EST [...] Recently Relevant to Health Maintenance Results * (ABNORMAL) POCT Urinalysis (12/14/2024 11:19 AM EDT) Color, UA Yellow Clarity, UA Clear Glucose, UA Negative Bilirubin, UA Negative Ketones, UA Negative Spec Grav, UA 1.020 Blood, UA Negative Negative, None Detected pH, UA 7.0 Protein, UA Trace Urobilinogen, UA 0.2 Leukocytes, UA Trace Negative, Rare, Trace Nitrite, UA Negative Negative, None Detected Appearance, UA clear QC Media Lot # [id number] Lot# Expiration Date [id number] Urine 12/14/2024 11:1 9 AM EDT Kat Bowers MD POINT OF CARE TEST ENTER/EDIT ORDERABLES Edited Result - Final * Culture, Urine, Routine (12/14/2024 11:06 AM EDT) Urine Urine specimen obtained by clean catch procedure / Unknown 12/14/2024 11:06 AM EDT 12/14/2024 2:16 PM EDT Comment:UACC Narrative [facility] - 12/15/2024 8:45 AM EDT Urine Culture No growth. Specimen Source: Urine clean catch us Kat Bowers MD LAB MICROBIOLOGY - GE NERAL ORDERABLES Final Result Performing Organization Address [facility] Co de Phone Number [facility] [address] [place] [phone] * (ABNORMAL) Bacterial Vaginosis Panel (12/14/2024 10:41 AM EDT) TRICHOMONAS VAGINALIS DETECTION BY PCR NOT DETECTED Not Detect [facility] BACTERIAL VAGINOSIS DETECTION BY PCR POSITIVE(A) Negative [facility] Comment:The BV organism targ ets of the Xpert Xpress MVP test can becommensal in women; Xpert Xpress MVP positive results forbacterial vaginosis should be considered in conjunction withother clinical and patient information to determine thedisease status. Organisms that are not detected by the XpertXpress MVP test have also been reported to be associatedwith BV and aerobic vaginitis.The Xpert Xpress MVP test performance has not been evaluatedin patients under the age of 14. S[employer]NA [employer] DETECTION BY PCR NOT DETECTED Not Detect [facility] Savana glab krusei PCR NOT DETECTED Not Detect [facility] Swab Vaginal structure / Unknown 12/14/2024 10:41 AM EDT 12/14/2024 2:15 PM EDT us Kat Bowers MD LAB MICROBIOLOGY - GE NERAL ORDERABLES Final Result Performing Organization Address [facility]/ZIP Co de Phone Number [facility] [address] [place] [address] [phone] * Hepatitis C Antibody (MAGDIEL BOWLING) (07/19/2024) Hepatitis C Ab Nonreactive Blood 07/19/2024 Historical Provider MD LAB BLOOD ORDERABLES Mandie l Result * HIV Ab/Ag (GA DP) (07/19/2024) HIV Ag/Ab Nonreactive Blood 07/19/2024 Historical Provider MD LAB BLOOD ORDERABLES Mandie l Result * Pap Smear (03/13/2024 10:25 AM EST) Swab Cervix uteri structure / Unknown 03/13/2024 10:25 AM EST 03/14/2024 8:45 AM EST Narrative [facility] - 03/19/2024 10:32 AM EST ----- ------- Name: Jessica Jarrell Age/Sex: 23/F : 2000 Unit#: [id number] Attend Dr: Zeina Sue [facility] Re03/13/24 Status: DEP [facility] Disch: ----- ------- SPEC : [id number] RECD: 03/14/24 STATUS: SELINA IBRAHIM NUM: [id number] AVRIL: 03/13/24-1025 [facility] DR: JOAQUIN WONG CNM ENTERED: 03/14/24 SP TYPE: Pap Smr OTHR DR: ORDERED: Pap Smear, PAP path review Interpretation General Category: Negative for intraepithelial lesion/malignancy. Adequacy: Endocervical component present. Interpretation: Inflammation with associated cellular changes. Shift in vaginal josé. Clinical Information LMP: Unknown date Previous PAP test: 2022, LGSIL Material Received ThinPrep-Cervical ----- ------- Signed (signature on file) Hermann Barfield MD 03/19/24 1032 ----- ------- END OF REPORT Joaquin Wong CNM LAB CYTOLOGY ORDERABLES F inal Result [facility] [address] [place] [phone] from Last 3 Months or Most Recently Relevant to Health Maintenance Insurance [facility] [address] [id number] [facility] [place] Care Teams Spa Manager Relationship Specialty Start Date End Date Micaela Chaudhary NP [address] [place] [phone] PCP - General Family Medicine 01/05/24
--- OUTSIDE RECORDS SUMMARY | 2025-01-17 17:48 | XMS_ITS | Encounter Summary ---
Author Organization [employer] Address [address] [facility] 7t [place] [address] Care Team Providers Care Pediatric Physical Therapist Name Role Phone Lynette Cooper Primary Care Provider Amy vailable Micaela Chaudhary WAXING MACHINE OPERATOR HELPER Primary Care Provider [phone] Micaela Chaudhary WAXING MACHINE OPERATOR HELPER Primary Care Provider [phone] Reason for Visit * Reason Onset Date Comments US results 06/14/2022 Encounter Details Date Type Department Care Team (Late st Contact Info) Description 06/14/2022 Telephone [facility] [address] [place] [address] Lynette Cooper FNP US results Social History Tobacco Use Types [...] Description 03/13/2025 9:30 AM EST Procedure Visit [facility] [address] [place], [place] [phone] Magy Watts CNM [address] [place], [place] [phone] documented as of this encounter Visit Diagnoses Not on filedocumented in this encounter Care Teams Pediatric Physical Therapist Relationship Specialty Start Date End Date Lynette Cooper FNP PCP - General Family Medicine 09/24/21 02/13/23 Micaela Chaudhary NP [address] [place] [phone] PCP - General Family Medicine 02/14/23 01/04/24 Micaela Chaudhary NP [address] [place] [phone] PCP - General Family Medicine 01/05/24 documented as of this encounter
--- OUTSIDE RECORDS SUMMARY | 2025-01-17 17:48 | XMS_ITS | Encounter Summary ---
Author Organization [employer] Address [address] [place] [address] Care Team Providers Care Proof Carrier Name Role Phone Westnicky Miceala CARR Primary Care Provider [phone] Reason for Visit * Reason Comments Med Refill Encounter Details Date Type Department Care Team ([facility] st Contact Info) Description 03/07/2024 Refill [facility] [address] [place] [address] Kat Coley MD [address] [place] [address] Social History Tobacco Use Types Packs/Day Years [...] the past 12 months, has t he [employer], gas, oil or water company threatened to [...] AM EDT documented as of this encounter Functional Status * Over the past 2 weeks, how often have you been bothered by any of the following problems? Question Answer Date of Assessment Author Patient Health Questionnaire -2 Score 3 03/08/2024 3:23 PM EDT Joan Moreno MA * If you checked off any problems on this questionnaire so far, Question Answer Date of Assessment Author How difficult have these problems made it for you to do your work, take care of things at home, or get along with other people? Not difficult at all 03/08/2024 3:23 PM THADDEUST Joan Moreno MA * Over the last 2 weeks, how often have you been bothered by any of the following problems? Question Answer Date of Assessment Author Feeling nervous, anxious, or on edge 2 03/08/2024 3:26 PM THADDEUST Joan Moreno MA Not being able to stop or co ntrol worrying 2 03/08/2024 3:26 PM THADDEUST Joan Moreno MA Worrying too much about diff erent things 2 03/08/2024 3:26 PM EDT Joan Moreno MA Trouble relaxing 1 03/08/2024 3:26 PM EDT Joan Ramírez MA Being so restless that it is hard to sit still 2 03/08/2024 3:26 PM EDT Joan Moreno MA Becoming easily annoyed or irritable 3 03/08/2024 3:26 PM EDT Joan Moreno MA Feeling afraid as if somethi ng awful might happen 0 03/08/2024 3:26 PM EDT Joan Moreno MA KELSY-7 Total Score 12 03/08/2024 3:26 PM THADDEUST Joan Moreno MA * Over the past 2 weeks, how often have you been bothered by any of the following problems? Question Answer Date of Assessment Author Little interest or pleasure in doing things Several days 03/08/2024 3:23 PM EDT Destiney Moreno MA Feeling down, depressed, or hopeless More than half the days 03/08/2024 3:23 PM THADDEUST Joan Moreno MA Trouble falling or staying asleep, or sleeping too much Nearly every day 03/08/2024 3:23 PM THADDEUST Joan Moreno MA Feeling tired or having little energy More than half the days 03/08/2024 3:23 PM THADDEUST Joan Moreno MA Poor appetite or overeating Nearly every day 03/08/2024 3:23 PM THADDEUST Joan Moreno MA Feeling bad about yourself - or that you are a failure or have let yourself or your family down Not at all 03/08/2024 3:23 PM THADDEUST Joan Moreno MA Trouble concentrating on things, such as reading the newspaper or watching television Several days 03/08/2024 3:23 PM THADDEUST Joan Moreno MA Moving or speaking so slowly that other people could have noticed? Or the opposite - being so fidgety or restless that you have been moving around a lot more than usual. Not at all 03/08/2024 3:23 PM EDT Joan Moreno MA Thoughts that you would be better off or hurting yourself in some way Not at all 03/08/2024 3:23 PM EDT Joan Moreno MA Patient Health Questionnaire-9 Score 12 03/08/2024 3:23 PM EDT Joan Moreno MA documented as of this encounter Miscellaneous Notes * Telephone Encounter - Micaela Chaudhary NP - 03/08/2024 4:52 PM EDT Patient states she not taking the medication at this time documented in this encounter Plan of Treatment Upcoming Encounters Date Type Department Care Team (Late st Contact Info) Description 03/13/2025 9:30 AM EST Procedure Visit [facility] [address] [place] [address] Magy Watts CNM [address] [place] [address] documented as of this encounter Visit Diagnoses Not on filedocumented in this encounter Additional Health Concerns Assessment Noted Time PHQ-9 Depression Total Score: 0 02/25/20 23 2:54 PM EDT documented as of this encounter Care Teams Proof Carrier Relationship Specialty Start Date End Date Micaela Chaudhary NP [address] [place] [address] PCP - General Family Medicine 01/05/24 documented as of this encounter
--- OUTSIDE RECORDS SUMMARY | 2025-01-17 17:48 | XMS_ITS | Encounter Summary ---
Author Organization [employer] Address [address] [facility] 7t [place] [address] Care Team Providers Care Fireworks Display Specialist Name Role Phone Lynette Cooper COLOR DEVELOPER Primary Care Provider Amy vailable Micaela Chaudhary SOLAR SALES ASSOCIATE Primary Care Provider [phone] Micaela Chaudhary SOLAR SALES ASSOCIATE Primary Care Provider [phone] Reason for Visit * Reason Onset Date Comments Appointment Request 10/31/2022 Encounter Details Date Type Department Care Team (Late st Contact Info) Description 10/31/2022 Telephone [facility] [address] [place] [address] Lynette Cooper FNP Appointment Request Social History Tobacco Use Types [...] Miscellaneous Notes * Telephone Encounter - Marga Jean - 10/31/2022 9:26 AM EDT Tc from patient requesting to r/s office visit with Dr. Watts on 10/31/22. [facility] and was unaware it was at [facility]. Details: F/U: heavy vaginal bleeding documented in this encounter Plan of Treatment Upcoming Encounters Date Type Department Care Team (Late st Contact Info) Description 03/13/2025 9:30 AM EST Procedure Visit [facility] [address] [place] [address] Magy Watts, MARY [address] [place] [address] documented as of this encounter Visit Diagnoses Not on filedocumented in this encounter Care Teams Fireworks Display Specialist Relationship Specialty Start Date End Date Lynette Cooper FNP PCP - General Family Medicine 09/24/21 02/13/23 Micaela Chaudhary NP [address] [place] [address] PCP - General Family Medicine 02/14/23 01/04/24 Micaela Chaudhary NP [address] [place] [address] PCP - General Family Medicine 01/05/24 documented as of this encounter
--- OUTSIDE RECORDS SUMMARY | 2025-01-17 17:48 | XMS_ITS | Encounter Summary ---
Author Organization [employer] Address [address] 7t [place] [address] Care Team Providers Care Fish And Wildlife Scientific Aid Name Role Phone Westnicky Micaela BRUNO Primary Care Provider [phone] Encounter Details Date Type Department Care Team (Latest Contact Info) Description 01/17/2025 Travel Social History Tobacco Use Types Packs/Day [...] as of this encounter Plan of Treatment Upcoming Encounters Date Type Department Care Team (Late st Contact Info) Description 03/13/2025 9:30 AM EST Procedure Visit [facility] [address] [place] [address] Magy Watts CNM [address] [place] [address] documented as of this encounter Visit Diagnoses Not on filedocumented in this encounter Additional Health Concerns Assessment Noted Time PHQ-9 Depression Total Score: 12 024 3:23 PM EDT documented as of this encounter Care Teams Fish And Wildlife Scientific Aid Relationship Specialty Start Date End Date Micaela Chaudhary NP 230 [place] [address] PCP - General Family Medicine 01/05/24 documented as of this encounter
--- OUTSIDE RECORDS SUMMARY | 2025-01-17 17:48 | XMS_ITS | Encounter Summary ---
Author Organization [employer] Address [address]t [place] [address] Care Team Providers Care Picture Booker Name Role Phone Micaela Chaudhary NP Primary Care Provider [phone] Micaela Chaudhary NP Primary Care Provider [phone] Reason for Visit * Reason Onset Date Comments Med Refill 09/23/2023 Encounter Details Date Type Department Care Team (Late st Contact Info) Description 09/23/2023 Refill [facility] [address] [place] [address] Micaela Chaudhary NP [address] [place] [address] Abnormal uterine bleeding Social History Tobacco Use [...] Description 03/13/2025 9:30 AM EST Procedure Visit [facility] [address] [place] [address] Magy Watts CN [address] [place] [address] documented as of this encounter Visit Diagnoses Diagnosis Abnormal uterine bleeding Unspecified disorder of menstruation and other abnormal bleeding from female genital tract documented in this encounter Additional Health Concerns Assessment Noted Time PHQ-9 Depression Total Score: 0 02/25/20 2:54 PM EDT documented as of this encounter Care Teams Picture Booker Relationship Specialty Start Date End Date Micaela Chaudhary NP [address] [place] [address] PCP - General Family Medicine 02/14/23 01/04/24 Micaela Chaudhary NP [address] [place] [address] PCP - General Family Medicine 01/05/24 documented as of this encounter
--- OUTSIDE RECORDS SUMMARY | 2025-01-17 17:48 | XMS_ITS | Encounter Summary ---
Author Organization [employer] Address [address] [facility] 7t [place] [address] Care Team Providers Care Starcher And Tenter Range Feeder Name Role Phone Kenneth, Lynette Moon BIODIESEL PLANT OPERATIONS ENGINEER Primary Care Provider Amy vailable Micaela Chaudhary RADIO TIME SALESPERSON Primary Care Provider [phone] Micaela Chaudhary RADIO TIME SALESPERSON Primary Care Provider [phone] Reason for Visit * Reason Onset Date Comments Med Refill 10/24/2022 Encounter Details Date Type Department Care Team (Late st Contact Info) Description 10/24/2022 Refill [facility] [address] [place] [address] Magy Watts CNM [address] [place] [address] Abnormal uterine bleeding Social History Tobacco Use [...] her the number for centralized scheduling via [employer] text. Scheduled F/U with Magy for 10/31 [...] Description 03/13/2025 9:30 AM EST Procedure Visit [facility] [address] [place] [address] Magy Watts CNM [address] [place] [address] documented as of this encounter Visit Diagnoses Diagnosis Abnormal uterine bleeding Unspecified disorder of menstruation and other abnormal bleeding from female genital tract documented in this encounter Care Teams Starcher And Tenter Range Feeder Relationship Specialty Start Date End Date Lynette Cooper FNP PCP - General Family Medicine 09/24/21 02/13/23 Micaela Chaudhary NP [address] [place] [address] PCP - General Family Medicine 02/14/23 01/04/24 Micaela Chaudhayr NP [address] [place] [address] PCP - General Family Medicine 01/05/24 documented as of this encounter
--- OUTSIDE RECORDS SUMMARY | 2025-01-17 17:48 | XMS_ITS | Encounter Summary ---
Author Organization [employer] Address [address] [facility] 7t [place] [address] Care Team Providers Care Software Packaging Engineer Name Role Phone KennethLynette damon Sarai PLUSH CUTTER Primary Care Provider Amy vailable Micaela Chaudhary BUYERS' AGENT Primary Care Provider [phone] Micaela Chaudhary BUYERS' AGENT Primary Care Provider [phone] Encounter Details Date Type Department Care Team (Late Contact Info) Description 05/25/2022 Orders Only [facility] MED & PEDS [address] [place] [address] Magy Watts CN [address] [place] [address] Social History Tobacco Use Types Packs/Day Years [...] Encounters Date Type Department Care Team (Late Contact Info) Description 03/13/2025 9:30 AM EST Procedure Visit [facility] MEDICINE [address] [place] [address] Magy Watts CNM [address] [place] [address] documented as of this encounter Procedures Procedure Name Priority Date/Time Associated Diagnosis Comments PAP SMEAR Routine 05/17/2022 12:00 AM EST documented in this encounter Results * (ABNORMAL) Pap Smear (05/17/2022 12:00 AM EST) Swab Narrative [facility] - 05/17/2022 12:00 AM EST LSIL pap, repeat in 1 year Magy Watts CNM LAB CYTOLOGY ORDERABLES E dited Result - Final [facility] [address] [facility], [place] [address] documented in this encounter Visit Diagnoses Not on filedocumented in this encounter Care Teams Software Packaging Engineer Relationship Specialty Start Date End Date Lynette Cooper FNP PCP - General Family Medicine 09/24/21 02/13/23 Micaela Chaudhary NP [address] [place] [address] PCP - General Family Medicine 02/14/23 01/04/24 Micaela Chaudhary NP [address] [place] [address] PCP - General Family Medicine 01/05/24 documented as of this encounter
--- OUTSIDE RECORDS SUMMARY | 2025-01-17 17:48 | XMS_ITS | Encounter Summary ---
Author Organization [employer] Address [address] [place] [address] Care Team Providers Care Spud Sorter Name Role Phone Micaela Chaudhary LANDING GEAR MECHANIC Primary Care Provider + Micaela Chaudhary LANDING GEAR MECHANIC Primary Care Provider [phone] Reason for Visit * Reason Onset Date Comments Med Refill 05/22/2023 Encounter Details Date Type Department Care Team (Late st Contact Info) Description 05/22/2023 Refill [facility] [address] [place], [place] [id number] Name, MD Mendez [address] [place] [address] Abnormal uterine bleeding Social History Tobacco Use [...] Description 03/13/2025 9:30 AM EST Procedure Visit [facility] [address] [place] [address] Magy Watts CNM [address] [place] [address] documented as of this encounter Visit Diagnoses Diagnosis Abnormal uterine bleeding Unspecified disorder of menstruation and other abnormal bleeding from female genital tract documented in this encounter Additional Health Concerns Assessment Noted Time PHQ-9 Depression Total Score: 0 02/25/20 23 2:54 PM EDT documented as of this encounter Care Teams Spud Sorter Relationship Specialty Start Date End Date Micaela Chaudhary NP [address] [place] [address] PCP - General Family Medicine 02/14/23 01/04/24 Micaela Chaudhary NP [address] [place] [address] PCP - General Family Medicine 01/05/24 documented as of this encounter
--- OUTSIDE RECORDS SUMMARY | 2025-01-17 17:48 | XMS_ITS | Encounter Summary ---
Author Organization [employer] Address [address] [facility] 7 [place] [address] Care Team Providers Care Enterprise Application Developer Name Role Phone Neena Micaela CARR Primary Care Provider [phone] Reason for Visit * Reason Onset Date Comments Med Refill 02/01/2024 Encounter Details Date Type Department Care Team (Late st Contact Info) Description 02/01/2024 Refill [facility] [address] [place] [address] Kat Coley MD [address] [place] [address] Social History Tobacco Use Types Packs/Day Years [...] Description 03/13/2025 9:30 AM EST Procedure Visit [facility] [address] [place] [address] Magy Watts CNM [address] [place] [address] documented as of this encounter Visit Diagnoses Not on filedocumented in this encounter Additional Health Concerns Assessment Noted Time PHQ-9 Depression Total Score: 0 02/25/20 23 2:54 PM EDT documented as of this encounter Care Teams Enterprise Application Developer Relationship Specialty Start Date End Date Micaela Chaudhary NP [address] [place] [address] PCP - General Family Medicine 01/05/24 documented as of this encounter
--- OUTSIDE RECORDS SUMMARY | 2025-01-17 17:48 | XMS_ITS | Encounter Summary ---
Author Organization [employer] Address [address] [facility] 7t [place] [address] Care Team Providers Care Director Of Public Health Name Role Phone Micaela Chaudhary NP Primary Care Provider [phone] Reason for Visit * Reason Onset Date Comments Med Refill 02/01/2024 Encounter Details Date Type Department Care Team (Late st Contact Info) Description 02/01/2024 Refill [facility] [address] [place] [address] Micaela Chaudhary NP [address] [place] [address] Abnormal uterine bleeding Social History Tobacco Use [...] Procedure Visit [facility] [address] [place] [address] Magy Watts CNM [address] [place] [address] documented as of this encounter Visit Diagnoses Diagnosis Abnormal uterine bleeding Unspecified disorder of menstruation and other abnormal bleeding from female genital tract documented in this encounter Additional Health Concerns Assessment Noted Time PHQ-9 Depression Total Score: 0 02/25/20 23 2:54 PM EDT documented as of this encounter Care Teams Director Of Public Health Relationship Specialty Start Date End Date Micaela Chaudhary NP [address] [place] [address] PCP - General Family Medicine 01/05/24 documented as of this encounter
--- OUTSIDE RECORDS SUMMARY | 2025-01-17 17:48 | XMS_ITS | Encounter Summary ---
Author Organization [employer] Address [address] [place] [address] Care Team Providers Care Explosives Handler Name Role Phone Micaela Chaudhary MIX MAKER Primary Care Provider [phone] Micaela Chaudhary MIX MAKER Primary Care Provider [phone] Reason for Visit * Reason Onset Date Comments Med Refill 04/06/2023 Encounter Details Date Type Department Care Team (Late st Contact Info) Description 04/06/2023 Refill [facility] [address] [place] [address] Magy Watts, IDA [address] [place] [address] Abnormal uterine bleeding Social History Tobacco Use [...] Description 03/13/2025 9:30 AM EST Procedure Visit [facility] [address] [place] [address] Magy Watts CN [address] [place] [address] documented as of this encounter Visit Diagnoses Diagnosis Abnormal uterine bleeding Unspecified disorder of menstruation and other abnormal bleeding from female genital tract documented in this encounter Additional Health Concerns Assessment Noted Time PHQ-9 Depression Total Score: 0 02/25/20 2:54 PM EDT documented as of this encounter Care Teams Explosives Handler Relationship Specialty Start Date End Date Micaela Chaudhary NP [address] [place] [address] PCP - General Family Medicine 02/14/23 01/04/24 Micaela Chaudhary NP [address] [place] [address] PCP - General Family Medicine 01/05/24 documented as of this encounter
--- OUTSIDE RECORDS SUMMARY | 2025-01-17 17:48 | XMS_ITS | Encounter Summary ---
Author Organization [employer] Address [address] [facility] 7t [place] [address] Care Team Providers Care Supervisor Calibration Name Role Phone Lynette Cooper Primary Care Provider Amy vailable Micaela Chaudhary NP Primary Care Provider [phone] Micaela Chaudhary LINER HELPER Primary Care Provider [phone] Encounter Details Date Type Department Care Team (Late st Contact Info) Description 05/20/2022 Telephone [facility] MEDICINE [address] [place] [address] Lynette Cooper FNP Social History Tobacco Use Types Packs/Day Years [...] 03/13/2025 9:30 AM EST Procedure Visit [facility]INE [address] [place] [address] Magy Watts CNM [address] [place], [place] [phone] documented as of this encounter Visit Diagnoses Not on filedocumented in this encounter Care Teams Supervisor Calibration Relationship Specialty Start Date End Date Lynette Cooper FNP PCP - General Family Medicine 09/24/21 02/13/23 Micaela Chaudhary NP [address] [place] [address] PCP - General Family Medicine 02/14/23 01/04/24 Micaela Chaudhary NP [address] [place] [address] PCP - General Family Medicine 01/05/24 documented as of this encounter
--- OUTSIDE RECORDS SUMMARY | 2025-01-17 17:48 | XMS_ITS | Encounter Summary ---
Author Organization [employer] Address [address] [facility] 7t [place] [address] Care Team Providers Care Sample Grader Name Role Phone Micaela Chaudhary FACULTY CRIMINAL JUSTICE Primary Care Provider + Micaela Chaudhary FACULTY CRIMINAL JUSTICE Primary Care Provider [phone] Reason for Visit * Reason Onset Date Comments Med Refill 05/22/2023 Encounter Details Date Type Department Care Team (Late st Contact Info) Description 05/22/2023 Refill [facility] [address] [place] [address] Magy Watts, IDA [address] [place] [address] Social History Tobacco Use Types Packs/Day Years [...] Description 03/13/2025 9:30 AM EST Procedure Visit [facility] [address] [place] [address] Magy Watts, CN [address] [place] [address] documented as of this encounter Visit Diagnoses Not on filedocumented in this encounter Additional Health Concerns Assessment Noted Time PHQ-9 Depression Total Score: 0 02/25/20 2:54 PM EDT documented as of this encounter Care Teams Sample Grader Relationship Specialty Start Date End Date Micaela Chaudhary NP [address] [place] [address] PCP - General Family Medicine 02/14/23 01/04/24 Micaela Chaudhary NP [address] [place] [address] PCP - General Family Medicine 01/05/24 documented as of this encounter
--- OUTSIDE RECORDS SUMMARY | 2025-01-17 17:48 | XMS_ITS | Encounter Summary ---
Author Organization [employer] Address [address] [facility] [address] [place] [address] Care Team Providers Care Mines Safety Engineer Name Role Phone Micaela Chaudhary NP Primary Care Provider [phone] Reason for Visit * Reason Onset Date Comments Med Refill 02/01/2024 Encounter Details Date Type Department Care Team (Late st Contact Info) Description 02/01/2024 Refill [facility] [address] [place] [address] Micaela Chaudhary NP [address] [place] [address] Social History Tobacco Use Types Packs/Day Years [...] Description 03/13/2025 9:30 AM EST Procedure Visit [facility] [address] [place] [address] Magy Watts CNM [address] [place] [address] documented as of this encounter Visit Diagnoses Not on filedocumented in this encounter Additional Health Concerns Assessment Noted Time PHQ-9 Depression Total Score: 0 02/25/20 23 2:54 PM EDT documented as of this encounter Care Teams Mines Safety Engineer Relationship Specialty Start Date End Date Micaela Chaudhary NP [address] [place] [address] PCP - General Family Medicine 01/05/24 documented as of this encounter
--- OUTSIDE RECORDS SUMMARY | 2025-01-17 17:48 | XMS_ITS | Encounter Summary ---
Author Organization [employer] Address [address] [place] [address] Care Team Providers Care Level Vial Sealer Name Role Phone Micaela Chaudhary NP Primary Care Provider [phone] Reason for Visit * Reason Onset Date Comments Lab Orders 01/17/2025 Encounter Details Date Type Department Care Team (Late st Contact Info) Description 01/17/2025 Telephone [facility] MED[facility] [address] [place] [address] Micaela Chaudhary NP [address] [place] [address] Lab Orders Social History Tobacco Use Types Packs/Day Years [...] Telephone Encounter - Tejal Galeano RN - 01/17/2025 3:27 PM EDT TC placed to pt via S fountain worker ([employer] ID#[id number]) regarding request for TB test. Pt requesting TB test for school. Advised pt lab order placed for pt to go at their convenience. Pt verbalized understanding and denies questions at this time. * Telephone Encounter - Anne Marie Restrepo - 01/17/2025 3:22 PM EDT Tc from pt requesting to get TB test Contact pt at [phone] (nauruan) documented in this encounter Plan of Treatment Upcoming Encounters Date Type Department Care Team (Late st Contact Info) Description 03/13/2025 9:30 AM EST Procedure Visit [facility] MEDICINE [address] [place] [address] Magy Watts CNM [address] [place] [address] Scheduled Orders Name Type Priority Associated Diagnoses Orde r Schedule T-SPOT .TB Lab Routine Screening-pulmonary TB Expected: 01/17/2025 (Approximate), Expires: 01/17/2026 documented as of this encounter Visit Diagnoses Diagnosis Screening-pulmonary TB- Primary Screening examination for pulmonary tuberculosis documented in this encounter Additional Health Concerns Assessment Noted Time PHQ-9 Depression Total Score: 12 024 3:23 PM EDT documented as of this encounter Care Teams Level Vial Sealer Relationship Specialty Start Date End Date Micaela Chaudhary NP 230 [place] [address] PCP - General Family Medicine 01/05/24 documented as of this encounter
[2025-01-19 12:24] LABS: Bacterial Vaginosis PCR POSITIVE (Negative); Candida Group PCR DETECTED (Not Detect); Candida glab krusei PCR NOT DETECTED (Not Detect); Trichomonas vaginalis PCR NOT DETECTED (Not Detect)
[2025-01-20 22:23] LABS: TS Negative Control Passed; TS Panel A 0; TS Panel B 0; TS Positive Control Passed; TSpotTB Negative (Negative)
== END 2025-01-17 15:57 | disposition home or self-care (01) ==
LOC: HO.LAB 15:56
PROVIDERS: Absent Provider Registered Nurse; PCP Student in an Organized Health Care Education/Training Program; Visit Provider Nurse Practitioner
DX: Z11.1 Encounter for screening for respiratory tuberculosis (principal); N76.0 Acute vaginitis
CPT/HCPCS: 36415; 81515; 86481